=== PATIENT | male | born 1975 | race Caucasian/White ===

== ENCOUNTER 2017-07-26 22:12 | Emergency (ER) | payer MEDICARE ==
[~2017-07-26] VITALS: Ht 182.9 cm; Wt 127.0 kg
[~2017-07-26 22:12] MED LIST: ACE325 PO; ACET-2043 PO; ALLO-119 PO; AMLO-104 PO; AMLO-99 PO; AMOX-559 PO; AMOX1TAB3 PO; AUG875 PO; BP MED; BUPR-472 PO; CALC-661 PO; CAR6.25; CLI150 PO; CLON-329 PO; COLC0.6T42 PO; CYAN1TAB44 PO; CYAN500T49 PO; DIGO250T6 PO; DULO30CA35 PO; DULO60CA56 PO; FEBU40TA2 PO; FEBU80TA3 PO; FERR-53 PO; FOL1 PO; FOLI0.4T56 PO; FUR40 PO; FURO-43 PO; GABA-503 PO; GABA-549 PO; GLIP-152 PO; HYDR-2975 PO; HYDR100T5 PO; HYDR1TAB PO; HYDR2TAB74 PO; HYDR50TA35 PO; INDO25OR3 PO; INDO50CA92 PO; ISOS60TA42 PO; LOR1 PO; METF-410 PO; METH4TAB57 PO; METO-231 PO; METO200T33 PO; METO5TAB79 PO; OXYC-865 PO; OXYC-870 PO; OXYC1TAB54 PO; PER PO; POTA20PA10 PO; POTA99TA10 PO; PRE1 PO; PRE10; PRE10 PO; PRE5 PO; PRED-1 PO; PRED-314 PO; PRED20TA6 PO; PROM-110 PO; SODI650T7 PO; SPIR25TA78 PO; TRA50 PO; TRAM-420 PO; VITA-175 PO; VITA1CAP50 PO; WAR25 PO; WARF2TAB81 PO; WARFARIN 2.5 MG; [UNRECOGNIZED DRUG - CODE]; [UNRECOGNIZED DRUG - OTHER]
--- NOTE | 2017-07-26 22:16 | ER Report ---
History and Physical Time Seen By MD: 22:16 HPI/ROS CHIEF COMPLAINT: Altered mental status HISTORY OF PRESENT ILLNESS: 41-year-old male brought in by his family with concerns about him sleeping for the last 2-3 days. He's only been awake for meals. He's been having some unsteady gait. He's been having some falling issues. Apparently fell just before they brought him in, which was a concern. Patient on arrival is alert and oriented 3. He is mentating well. He voices no complaints. Patient denies headache, visual changes, any numbness, tingling or weakness in any of his extremities. Patient denies new medications except for U [place], which was started 6-8 weeks ago. Patient's been unable to take his medications today because he been sleeping. His blood pressures elevated on arrival. He is on multiple medications for blood pressure management. REVIEW OF SYSTEMS: Respiratory: No cough, no dyspnea. Cardiovascular: No chest pain, no palpitations. Gastrointestinal: No vomiting, no abdominal pain. Musculoskeletal: No back pain. Allergies: Coded Allergies: No Known Drug Allergies (Verified , 07/26/17) Home Meds Active Scripts Glipizide (GLIPIZIDE) 5 Mg Tablet, 1 TAB PO BID, #60 TAB 4 Refills Prov:BRADLEY LYLES MD 06/09/17 Prednisone 5 Mg Tab (PREDNISONE 5 MG TAB) 5 Mg Tablet, 1 TAB PO QDAY, #30 TAB Prov:BRADLEY LYLES MD 04/30/17 Isosorbide Mononitrate (ISOSORBIDE MONONITRATE ER) 60 Mg Tab.er.24h, 60 MG PO QDAY, #30 TAB 3 Refills Prov:BRADLEY LYLES MD 04/30/17 Duloxetine Hcl (CYMBALTA) 60 Mg Capsule.dr, 60 MG PO QDAY, #30 CAP 3 Refills Prov:BRADLEY LYLES MD 04/21/17 Oxycodone Hcl/Acetaminophen (PERCOCET 5-325 MG TABLET) 1 Each Tablet, 1 EACH PO BID Y for PAIN, #60 TAB Prov:BRADLEY LYLES MD 04/21/17 Hydralazine Hcl (HYDRALAZINE HCL) 100 Mg Tablet, 100 MG PO TID, #90 TAB 3 Refills Prov:BRADLEY LYLES MD 03/22/17 Warfarin Sodium (WARFARIN SODIUM) 2 Mg Tablet, 1-2 TAB PO DIRECTED, #60 TAB 6 Refills Take 2 tabs on Mon, Wed, Fri, Sat Take 1 tab on Tu, Th, and Sun Prov:BRADLEY LYLES MD 03/22/17 Amlodipine Besylate (AMLODIPINE BESYLATE) 10 Mg Tablet, 1 TAB PO QDAY, #30 TAB 6 Refills Prov:BRADLEY LYLES MD 03/10/17 Reported Medications Febuxostat (ULORIC) 40 Mg Tablet, 40 MG PO QDAY 07/27/17 Febuxostat (ULORIC) 40 Mg Tablet, 40 MG PO QDAY 06/09/17 Vitamin B Complex (B COMPLEX) 1 Each Tablet, 1 EACH PO QDAY 03/01/17 Acetaminophen (ACETAMINOPHEN) 500 Mg Tablet, 2 TAB PO Q4-6H Y for PAIN, TAB 03/01/17 Ferrous Sulfate (FERROUS SULFATE) 325 Mg Tablet, 1 TAB PO BID 03/01/17 Calcium Carbonate (CALCIUM CARBONATE) 200 Mg Tab.chew, 1 TAB PO TID, TAB.CHEW 03/01/17 Allopurinol (ZYLOPRIM) 300 Mg Tablet, 1 TAB PO BID, TAB 01/26/17 Metoprolol Succinate (TOPROL XL) 200 Mg Tab.er.24h, 1 TAB PO BID 01/11/14 Folic Acid (FOLIC ACID) 0.4 Mg Tablet, 1 TAB PO DAILY 01/11/14 Past Medical/Surgical History Past Medical History Cardiovascular: Reports hx of: CHF hypertension Respiratory: Reports hx of: sleep apnea (Cpap) Musculoskeletal: Reports hx of: gout Endocrine: Reports hx of: diabetes type 2 Past Surgical History Gastrointestinal: Reports hx of: other GI surgery (Tumor removed from colon) Genitourinary - Male: Reports hx of: other surgery (Testical Removed) Information copy from Dr. Lyles's note dated 06/09/17 This patient is a pleasant 41-year-old male who came in today to see me for the f/u. patient had a complicated medical history he was recently hospitalized at [facility] on 02/17/17 and was discharged on 02/22/17. Patient was admitted because of the suspicion for sepsis he has moved here from [place] not too long ago patient has had tachycardia and leukocytosis along with elevated lactate at admission he was treated with IV fluids and IV antibiotics of infection was identified and antibiotics were stopped after 5 days for infection was found Past medical history significant for stage IIIB chronic kidney disease he did have acute kidney injury during his stay in the hospital in February/2017 with rise in the creatinine to about 2.3 patient was also seen by pie filling mixer during his stay in the hospital his creatinine has improved since then and most recent labs have shown creatinine of 1.60 which appeared to have worsened from the previous creatinine patient is not on any diuretics at this time Patient also has history of chronic gout he is currently on allopurinol 300 mg twice a day and has recently been started on ULoric 40 mg daily. His last uric acid level was 6.1 and appears to have improved Patient also has history of chronic systolic heart failure his ejection fraction was only 20% in 2012 and has had ICD placed at that time recently in the hospital on 02/19/17 echocardiogram showed LVEF of 40-50% with normal diastolic function he is currently following up with the environmental projects advisor from [place] for furosemide and spironolactone have been discontinued recently he has another echocardiogram on 03/31/17 which has shown mildly decreased left ventricular ejection fraction of 45% with 2 x 4 diastolic dysfunction Patient was also found to have hypernatremia and most recent labs have shown sodium of 149 he has been following up with pie filling mixer in [place] but the records are not available Past medical history significant for diabetes mellitus patient was on metformin until recently and was discontinued because of the kidney disease he is also on chronic prednisone therapy likely responsible for diabetes mellitus he is currently on glipizide 5 mg every day most recent labs have shown a hemoglobin A1c of 5.7 according to patient his blood sugars have started to go up again Patient also had intermittent hematuria and is going to follow up with urologist Patient has history of hypertension which is difficult to control blood pressure is still elevated he is currently on amlodipine 10 mg daily along with hydralazine 100 mg daily and also on metoprolol 200 mg twice a day. Blood pressure is still elevated patient is not sure if he is taking hydralazine or not patient has been referred to environmental projects advisor but was unable to come in for his appointment and will try to reschedule Patient also has history of depression and anxiety he was on Wellbutrin and has been switched to Cymbalta to help with his pain Reviewed Nurses Notes: Yes Old Medical Records Reviewed: Yes Hx Smoking: Yes Smoking Status: Former Smoker Exposure to Second Hand Smoke?: No Hx Substance Use Disorder: No Hx Alcohol Use: No Constitutional Vital Sign - Last 24 Hours 07/26/17 07/26/17 07/26/17 07/26/17 22:16 22:17 22:20 22:23 Temp 97.9 Pulse 128 Resp 24 B/P (MAP) 175/132 (146) 165/123 186/131 (149) 165/123 (137) Pulse Ox 94 O2 Delivery Room Air 07/26/17 07/26/17 07/26/17 07/26/17 22:27 22:30 22:42 22:57 Pulse 119 56 55 Resp 29 22 12 B/P (MAP) 182/114 (136) Pulse Ox 96 93 93 07/26/17 07/26/17 07/26/17 07/26/17 23:02 23:17 23:30 23:32 Pulse ??? 54 52 Resp 80 17 B/P (MAP) 183/106 (131) Pulse Ox 94 91 07/26/17 07/27/17 07/27/17 07/27/17 23:47 00:00 00:02 00:07 Pulse 49 50 53 Resp 22 24 20 B/P (MAP) 185/117 (139) Pulse Ox 94 91 91 Physical Exam General Appearance: The patient is alert, has no immediate need for airway protection and no current signs of toxicity. Alert and oriented 3, vital signs stable, afebrile, blood pressure elevated HEENT: Pupils equal and round no injection. TMs normal, oropharynx without redness or exudate, mucous. Membranes are moist Respiratory: Chest is non tender, lungs are clear to auscultation. No wheezing or rails Cardiac: regular rate and rhythm Gastrointestinal: Abdomen is soft and non tender, no masses, bowel sounds normal. Musculoskeletal: Neck: Neck is supple and non tender. No lymphadenopathy, no meningismus Extremities have full range of motion and are non tender. Skin: No rashes or lesions. DIFFERENTIAL DIAGNOSIS: After history and physical exam differential diagnosis was considered for altered mental status including but not limited to hypoglycemia, infectious process, electrolyte abnormality, head injury and intoxicants. Medical Decision Making Data Points Result Diagram: 1/22/18 2245 1/22/18 2245 Laboratory Hematology Test 07/26/17:21 07/26/17 22:23 07/26/17 22:45 07/26/17 23:42 Influenza Virus Type A (PCR) Negative (NEGATIVE) Influenza Virus Type B (PCR) Negative (NEGATIVE) Whole Blood Glucose 129 mg/DL (75-110) Red Blood Count 5.82 M/uL (4.00-5.60) Mean Corpuscular Volume 80.1 fL (80.0-96.0) Mean Corpuscular Hemoglobin 25.9 pg (26.0-33.0) Mean Corpuscular Hemoglobin Concent 32.3 g/dL (32.0-36.0) Red Cell Distribution Width 17.8 % (11.5-14.5) Mean Platelet Volume 8.8 fL (7.2-11.1) Neutrophils (%) (Auto) 68.4 % (39.4-72.5) Lymphocytes (%) (Auto) 23.1 % (17.6-49.6) Monocytes (%) (Auto) 6.9 % (4.1-12.4) Eosinophils (%) (Auto) 0.5 % (0.4-6.7) Basophils (%) (Auto) 1.1 % (0.3-1.4) Nucleated RBC Relative Count (auto) 0.0 /100WBC Neutrophils # (Auto) 6.9 K/uL (2.0-7.4) Lymphocytes # (Auto) 2.3 K/uL (1.3-3.6) Monocytes # (Auto) 0.7 K/uL (0.3-1.0) Eosinophils # (Auto) 0.1 K/uL (0.0-0.5) Basophils # (Auto) 0.1 K/uL (0.0-0.1) Nucleated RBC Absolute Count (auto) 0.01 K/uL Peripheral Blood Smear No Y/N Prothrombin Time 13.1 seconds (12.0-14.4) Prothromb Time International Ratio 0.99 Activated Partial Thromboplast Time 28 seconds (23-35) Sodium Level 146 mmol/L (137-145) Potassium Level 4.0 mmol/L (3.5-5.0) Chloride Level 112 mmol/L (98-107) Carbon Dioxide Level 22 mmol/L (22-30) Blood Urea Nitrogen 22 mg/dl (9-21) Creatinine 2.00 mg/dl (0.66-1.25) Glomerular Filtration Rate Calc 37.0 Random Glucose 129 mg/dl (75-110) Lactate 1.6 mmol/L (0.7-2.1) Calcium Level 9.7 mg/dl (8.4-10.2) Total Bilirubin 1.1 mg/dl (0.2-1.3) Aspartate Amino Transf (AST/SGOT) 21 U/L (0-35) Alanine Aminotransferase (ALT/SGPT) 40 U/L (0-56) Alkaline Phosphatase 100 U/L (0-126) Troponin I 0.075 ng/ml B-Type Natriuretic Peptide 1080 pg/ml (0-100) Total Protein 7.1 gm/dl (6.3-8.2) Albumin 4.0 g/dl (3.5-5.0) Serum Alcohol < 10 mg/dl Urine Color Yellow Urine Clarity Clear Urine pH 5.0 pH (4.8-9.5) Urine Specific [place] 1.013 Urine Protein 100 mg/dL (NEGATIVE) Urine Glucose (UA) Negative mg/dL (NEGATIVE) Urine Ketones Negative mg/dL (NEGATIVE) Urine Blood Small (NEGATIVE) Urine Nitrite Negative (NEGATIVE) Urine Bilirubin Negative (NEGATIVE) Urine Urobilinogen Negative mg/dL (0.2-1.9) Urine Leukocyte Esterase Negative (NEGATIVE) Urine RBC 1 /HPF (0-2/HPF) Urine WBC <1 /HPF (0-5/HPF) Urine Squamous Epithelial Cells None /LPF (</=FEW) Urine Bacteria Negative /HPF (NONE-FEW) Urine Hyaline Casts Few /LPF (NONE-FEW) Urine Mucus None /HPF (NONE-FEW) Urine Opiates Screen Negative Urine Barbiturates Screen Negative Ur Tricyclic Antidepressants Screen Negative Urine Phencyclidine Screen Negative Urine Amphetamines Screen Negative Urine Benzodiazepines Screen Negative Urine Cocaine Screen Negative Urine Cannabinoids Screen Negative Chemistry Test 07/26/17 22:21 07/26/17 22:23 07/26/17 22:45 07/26/17 23:42 Influenza Virus Type A (PCR) Negative (NEGATIVE) Influenza Virus Type B (PCR) Negative (NEGATIVE) Whole Blood Glucose 129 mg/DL (75-110) White Blood Count 10.1 k/uL (4.5-11.0) Red Blood Count 5.82 M/uL (4.00-5.60) Hemoglobin 15.1 g/dL (14.0-18.0) Hematocrit 46.7 % (42.0-52.0) Mean Corpuscular Volume 80.1 fL (80.0-96.0) Mean Corpuscular Hemoglobin 25.9 pg (26.0-33.0) Mean Corpuscular Hemoglobin Concent 32.3 g/dL (32.0-36.0) Red Cell Distribution Width 17.8 % (11.5-14.5) Platelet Count 226 K/uL (150-450) Mean Platelet Volume 8.8 fL (7.2-11.1) Neutrophils (%) (Auto) 68.4 % (39.4-72.5) Lymphocytes (%) (Auto) 23.1 % (17.6-49.6) Monocytes (%) (Auto) 6.9 % (4.1-12.4) Eosinophils (%) (Auto) 0.5 % (0.4-6.7) Basophils (%) (Auto) 1.1 % (0.3-1.4) Nucleated RBC Relative Count (auto) 0.0 /100WBC Neutrophils # (Auto) 6.9 K/uL (2.0-7.4) Lymphocytes # (Auto) 2.3 K/uL (1.3-3.6) Monocytes # (Auto) 0.7 K/uL (0.3-1.0) Eosinophils # (Auto) 0.1 K/uL (0.0-0.5) Basophils # (Auto) 0.1 K/uL (0.0-0.1) Nucleated RBC Absolute Count (auto) 0.01 K/uL Peripheral Blood Smear No Y/N Prothrombin Time 13.1 seconds (12.0-14.4) Prothromb Time International Ratio 0.99 Activated Partial Thromboplast Time 28 seconds (23-35) Glomerular Filtration Rate Calc 37.0 Lactate 1.6 mmol/L (0.7-2.1) Calcium Level 9.7 mg/dl (8.4-10.2) Total Bilirubin 1.1 mg/dl (0.2-1.3) Aspartate Amino Transf (AST/SGOT) 21 U/L (0-35) Alanine Aminotransferase (ALT/SGPT) 40 U/L (0-56) Alkaline Phosphatase 100 U/L (0-126) Troponin I 0.075 ng/ml B-Type Natriuretic Peptide 1080 pg/ml (0-100) Total Protein 7.1 gm/dl (6.3-8.2) Albumin 4.0 g/dl (3.5-5.0) Serum Alcohol < 10 mg/dl Urine Color Yellow Urine Clarity Clear Urine pH 5.0 pH (4.8-9.5) Urine Specific [place] 1.013 Urine Protein 100 mg/dL (NEGATIVE) Urine Glucose (UA) Negative mg/dL (NEGATIVE) Urine Ketones Negative mg/dL (NEGATIVE) Urine Blood Small (NEGATIVE) Urine Nitrite Negative (NEGATIVE) Urine Bilirubin Negative (NEGATIVE) Urine Urobilinogen Negative mg/dL (0.2-1.9) Urine Leukocyte Esterase Negative (NEGATIVE) Urine RBC 1 /HPF (0-2/HPF) Urine WBC <1 /HPF (0-5/HPF) Urine Squamous Epithelial Cells None /LPF (</=FEW) Urine Bacteria Negative /HPF (NONE-FEW) Urine Hyaline Casts Few /LPF (NONE-FEW) Urine Mucus None /HPF (NONE-FEW) Urine Opiates Screen Negative Urine Barbiturates Screen Negative Ur Tricyclic Antidepressants Screen Negative Urine Phencyclidine Screen Negative Urine Amphetamines Screen Negative Urine Benzodiazepines Screen Negative Urine Cocaine Screen Negative Urine Cannabinoids Screen Negative Coagulation Test 07/26/17 22:45 Prothrombin Time 13.1 seconds Prothromb Time International Ratio 0.99 Activated Partial Thromboplast Time 28 seconds Toxicology Test 07/26/17 22:45 07/26/17 23:42 Serum Alcohol < 10 mg/dl Urine Opiates Screen Negative Urine Barbiturates Screen Negative Ur Tricyclic Antidepressants Screen Negative Urine Phencyclidine Screen Negative Urine Amphetamines Screen Negative Urine Benzodiazepines Screen Negative Urine Cocaine Screen Negative Urine Cannabinoids Screen Negative Urinalysis Test 07/26/17 23:42 Urine Color Yellow Urine Clarity Clear Urine pH 5.0 pH (4.8-9.5) Urine Specific [place] 1.013 Urine Protein 100 mg/dL (NEGATIVE) Urine Glucose (UA) Negative mg/dL (NEGATIVE) Urine Ketones Negative mg/dL (NEGATIVE) Urine Blood Small (NEGATIVE) Urine Nitrite Negative (NEGATIVE) Urine Bilirubin Negative (NEGATIVE) Urine Urobilinogen Negative mg/dL (0.2-1.9) Urine Leukocyte Esterase Negative (NEGATIVE) Urine RBC 1 /HPF (0-2/HPF) Urine WBC <1 /HPF (0-5/HPF) Urine Squamous Epithelial Cells None /LPF (</=FEW) Urine Bacteria Negative /HPF (NONE-FEW) Urine Hyaline Casts Few /LPF (NONE-FEW) Urine Mucus None /HPF (NONE-FEW) EKG/Imaging EKG Interpretation 12 lead EK Rhythm: Ventricular pacemaker rhythm at 114 bpm Winnie: normal QRS: normal ST segments: normal, comparison to previous EKG dated 09/02/49, no significant overall morphologic change, there is an increased rate Imaging X-ray: Single view chest x-ray was obtained. I viewed the images myself on the PACS system. My interpretation of the images is: No infiltrate, no effusion, intact pacemaker,. The radiologist interpretation had no clinically significant variation from this interpretation. Results: CT scan of the head was obtained. The results of the study are CT Head without contrast Indication: Altered mental status, falling. Comparison: None available. Technique: Axial CT images were obtained through the brain from the skull base to the vertex without administration of IV contrast. One of the following dose optimization techniques was utilized in the performance of this exam: Automated exposure control; adjustment of the mA and/or kV according to the patient's size ; or use of an iterative reconstruction technique. Specific details can be referenced in the facility's radiology CT exam operational policy. Findings: No evidence of mass, mass effect, or midline shift. No acute intracranial hemorrhage or acute territorial infarction. There is a small amount of bilateral patchy White matter hypoattenuation. Skull is nonacute. Globes and orbits are normal. Small retention cysts in the right maxillary sinus. The visualized paranasal sinuses and mastoid air spaces are otherwise clear. IMPRESSION: 1. No definite acute intracranial abnormality. 2. Small amount of nonspecific white matter disease, possibly related to chronic small vessel ischemic changes. The study was read by the radiologist. I viewed the images myself on the PACS system. ED Course/Re-evaluation Clinical Indication for ER IV: IV Access ED Course Patient was admitted to an examination room. H&P was done. The differential diagnoses was considered. On clinical examination, patient is a nonfocal neurologic examination is appropriate and responding. Extensive diagnostic evaluation is undertaken. He has some chronic medical problems, which are noted on the laboratory studies. Head CT is unremarkable. See no indication for admission at this time. I reviewed his medications. DC Uloric, which was recently started 6 or 8 weeks ago can cause mental status changes. I advised him to discontinue it. Patient has a follow-up appointment with his primary care tomorrow. Decision to Disposition Date: Jul 27, 2017 Decision to Disposition Time: 00:14 Depart Departure Latest Vital Signs Vital Signs Date Time Temp Pulse Resp B/P (MAP) Pulse Ox O2 Delivery O2 Flow Rate FiO2 07/27/17 00:07 53 20 91 07/27/17 00:00 185/117 (139) 07/26/17 22:17 97.9 Room Air Impression: Primary Impression: Altered mental status, unspecified Additional Impressions: Adverse drug reaction Gout Cardiomyopathy Pacemaker Hypertension Condition: Improved Disposition: HOME OR SELF-CARE Referrals: BRADLEY LYLES MD (PCP) Patient Instructions: Adverse Drug Reaction (ED), Fatigue (ED) Additional Instructions: Follow-up with your primary care doctor as planned in the next few days Problem Qualifiers Primary Impression: Altered mental status, unspecified Altered mental status type: somnolence Qualified Codes: R40.0 - Somnolence Additional Impressions: Adverse drug reaction Encounter type: initial encounter Qualified Codes: T88.7XXA - Unspecified adverse effect of drug or medicament, initial encounter Gout Gout site: unspecified site Gout etiology: unspecified cause Chronicity: chronic Presence of tophus: without tophus Qualified Codes: M1A.9XX0 - Chronic gout, unspecified, without tophus (tophi) Cardiomyopathy Cardiomyopathy type: unspecified Qualified Codes: I42.9 - Cardiomyopathy, unspecified Hypertension Hypertension type: essential hypertension Qualified Codes: I10 - Essential ( primary) hypertension CARRIE GRIFFIN DO Jul 26, 2017 22:16
--- NOTE | 2017-07-26 22:39 | EKG ---
[place] [facility] [place] VIKTORIA BUSBY : [id number] MR: [id number] V: [id number] EXAM DATE: ORDERING PHYSICIAN: CARRIE GRIFFIN TECHNOLOGIST: SERJIO Licea Reason : NEURO Blood Pressure : / mmHG Vent. Rate : 114 BPM Atrial Rate : 114 BPM P-R Int : 136 ms QRS Dur : 126 ms QT Int : 376 ms P-R-T Axes : 052 -78 080 degrees QTc Int : 518 ms Electronic ventricular pacemaker with elevated rate approxiamtely 115. Confirmed by CAROL GREEN ([id number]) on 07/27/2017 5:44:24 AM Referred By: Confirmed By:CAROL GREEN
[2017-07-26 22:57] LABS: PLATELET COUNT, AUTOMATED 226 K/uL (150-450)
[2017-07-26 23:06] LABS: INR 0.99
--- NOTE | 2017-07-26 23:36 | RADIOLOGY IMAGING REPORT ---
FACILITY: [facility] PATIENT NAME: Roland Daugherty : 1975 MR: [id number] V: [id number] EXAM DATE: ORDERING PHYSICIAN: CARRIE GRIFFIN TECHNOLOGIST: Location: [facility] [place] Patient: Roland Daugherty : 1975 Visit/Account:[id number] Date of Sevice: 07/26/2017 CT Head without contrast Indication: Altered mental status, falling. Comparison: None available. Technique: Axial CT images were obtained through the brain from the skull base to the vertex without administration of IV contrast. One of the following dose optimization techniques was utilized in th e performance of this exam: Automated exposure control; adjustment of the mA and/or kV according to t he patient's size; or use of an iterative reconstruction technique. Specific details can be referen starr in the facility's radiology CT exam operational policy. Findings: No evidence of mass, mass effect, or midline shift. No acute intracranial hemorrhage or acute territorial infarction. There is a small amount of bilateral patchy White matter hypoattenuation. Skull is nonacute. Globes and orbits are normal. Small retention cysts in the right maxillary sinus. The visualized paranasal sinuses and mastoid air spaces are otherwise clear. IMPRESSION: 1. No definite acute intracranial abnormality. 2. Small amount of nonspecific white matter disease, possibly related to chronic small vessel ischem ic changes. Report Dictated By: Robin Flood MD at 07/26/2017 11:27 PM Report E-Signed By: Robin Flood MD at 07/26/2017 11:31 PM WSN:[id number]
--- NOTE | 2017-07-26 23:37 | RADIOLOGY IMAGING REPORT ---
[place] [facility] [place] Roland Daugherty : 1975 MR: [id number] V: [id number] EXAM DATE: ORDERING PHYSICIAN: CARRIE GRIFFIN [place]CHNOLOG[place] [facility] [place] : 1975 Visit/Account:[id number] Date of Sevice: 07/26/2017 SINGLE AP RADIOGRAPH OF THE CHEST 07/26/2017 10:32 PM. INDICATION: Altered mental status. COMPARISON: 01/21/2017. FINDINGS: Unchanged implanted pacer/defibrillator. Lungs are well-expanded. There is no consolidation. No pleural effusion or pneumothorax. Unchanged e nlargement of the cardiac silhouette. IMPRESSION: Unchanged enlargement of the cardiac silhouette, no acute abnormality. Report Dictated By: Robin Flood MD at 07/26/2017 11:31 PM Report E-Signed By: Robin Flood MD at 07/26/2017 11:33 PM WSN:[id number]
[2017-07-27] VITALS: BP 185/117
[2017-07-27] MEDS ORDERED: FEBU40TA2 PO
[2017-07-27] MEDS ORDERED: HYDR100T5 PO (13:18)
[2017-07-27] MEDS ORDERED: GLIP-152 PO (13:18)
[2017-07-27] MEDS ORDERED: DULO60CA56 PO (13:18)
[2017-07-27] MEDS ORDERED: WARF2TAB81 PO (13:18)
[2017-07-27] MEDS ORDERED: ISOS60TA42 PO (13:18)
[2017-07-27] MEDS ORDERED: AMLO-99 PO (13:18)
[2017-07-27] MEDS ORDERED: METO200T33 PO (13:18)
[2017-07-27] MEDS ORDERED: ALLO-119 PO (13:18)
== END 2017-07-27 00:20 | disposition home or self-care (01) ==
LOC: ER 22:15
DX: R40.0 Somnolence (principal); T88.7XXA Unspecified adverse effect of drug or medicament, initial encounter; M1A.9XX0 Chronic gout, unspecified, without tophus (tophi); I42.9 Cardiomyopathy, unspecified; I10 Essential (primary) hypertension; Z95.0 Presence of cardiac pacemaker; Z91.81 History of falling; E11.9 Type 2 diabetes mellitus without complications; G47.30 Sleep apnea, unspecified
CPT/HCPCS: 36415; 36416; 70450; 71045; 80305; 81001; 82948; 83605; 83880; 84443; 84484; 85025; 85610; 85730; 87040; 87502; 93005; 99284; G0480; 80320; 82040; 82247; 82310; 82374; 82435; 82565; 82947; 84075; 84132; 84155; 84295; 84450; 84460; 84520

== ENCOUNTER → 2017-08-12 | Outpatient (CLI) | payer MEDICARE | LOC: SPU 14:32 | DX: M10.9 Gout, unspecified (principal); Z79.899 Other long term (current) drug therapy | CPT/HCPCS: 82565; 84450; 84550 ==

== ENCOUNTER 2017-08-27 09:56 | Outpatient (RCR) | payer MEDICARE ==
[2017-08-12 14:38] VITALS: BP 138/93
[2017-08-12 15:15] LABS: PLATELET COUNT, AUTOMATED 210 K/uL (150-450)
[2017-08-27 10:03] VITALS: BP 158/99
--- NOTE | 2017-08-27 17:24 | ONCOLOGY FOLLOW UP NOTE ---
EVENT DATE: August 27, 2017 DIAGNOSES 1. Bone lesions. 2. History of histocytosis as an , status post radiation and chemotherapy. 3. Congestive heart failure. 4. Chronic kidney disease. 5. Hypertension. 6. Diabetes mellitus. 7. Gout. CHIEF COMPLAINT The patient is here today for followup of his bone lesions. HEMATOLOGY/ONCOLOGY HISTORY The patient is a 41-year-old male who presented to the emergency room lately with abdominal pain and hematuria. He had a CT of the abdomen and pelvis done on January 26, 2017, which showed a chronically right atrophic kidney with numerous complex renal lesions which could represent complex cysts. There were also 2 stable small mesenteric masses unchanged from his previous scan in 2013. There were numerous sclerotic bone lesions which had progressed from 2013 and concerning for possible progressive osseus metastatic disease. The patient presented with bone lesions in 2012, and he had a right ischial bone biopsy done on November 25, 2014, which showed bone was associated with both skeletal and muscle tissue. HISTORY OF PRESENT ILLNESS Patient is here today for followup of his enlarging bone lesions which proved to be benign. He is complaining of nasal discharge with cough and expectoration and intermittent diarrhea. He has generalized pain from his gout , but generally speaking his pain is much better controlled currently, and the patient is followed by a quality assurance supervisor. PAST MEDICAL HISTORY 1. Bone lesions. 2. Histocytosis as an infant, status post chemoradiation. 3. Congestive heart failure. 4. Chronic kidney disease. 5. Hypertension. 6. Diabetes mellitus. 7. Gout. PAST SURGICAL HISTORY 1. Orchiectomy in 1997. 2. 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 3. Placement of a defibrillator. FAMILY HISTORY Mother with pancreatic cancer. Maternal grandmother had colon cancer. SOCIAL HISTORY The patient is with no children. He is on disability. He quit smoking in 2009 after 1-1/2 packs per day for 16 years. He denies any abuse of alcohol or illicit drugs. CURRENT MEDICATIONS 1. Percocet 5/325 mg 1 tablet q.4 hours p.r.n. pain. 2. Allopurinol 300 mg twice daily. 3. Tramadol 50 mg q.4-6 hours p.r.n. 4. Metformin 500 mg b.i.d. 5. Potassium 99 mg b.i.d. 6. Metoprolol 200 mg q.24 hours. 7. Folic acid 400 mcg daily. 8. Gabapentin 600 mg 3 times daily. 9. Wellbutrin XL 150 mg once daily. 10. Amlodipine 10 mg daily. 11. Hydralazine 50 mg 3 times daily. 12. Vitamin B12 500 mcg daily. 13. Warfarin 2.5 mg daily on Wednesday, Wednesday, and Wednesday; 5 mg on Wednesday, Wednesday, , and Wednesday. 14. Lasix 40 mg daily. 15. Spironolactone 25 mg tablets 1/2 tablet daily. ALLERGIES No known drug allergies. REVIEW OF SYSTEMS CONSTITUTIONAL: No appetite or weight change. No fever, chills or sweating. No recent infection. HEENT: Ears: No tinnitus or hearing problem. Nose: He has nasal discharge. Throat: No sore throat or mouth ulcers. Eyes: No diplopia or visual changes. RESPIRATORY: He has cough with expectoration. CARDIOVASCULAR: No chest pain, orthopnea, or paroxysmal nocturnal dyspnea (PND) . No edema. No palpitations. GASTROINTESTINAL: No nausea or vomiting. He has intermittent diarrhea. No change in bowel movements. No heartburn or swallowing difficulties. No abdominal pain. No jaundice. No hematemesis, melena or rectal bleeding. GENITOURINARY: He has generalized joint pains from gout. No hematuria or dysuria. MUSCULOSKELETAL: He has generalized joint pains from gout. NEUROLOGICAL: No tingling or numbness in the hands or feet. No headaches or convulsions. HEMATOLOGIC/LYMPHATIC: No bleeding or easy bruising. No weakness or fatigue. No enlarged lymph nodes. SKIN: No skin rash or lumps. PSYCHIATRIC: No anxiety or depression. PHYSICAL EXAMINATION GENERAL: Looks stable. Well-developed, well-nourished, and in no acute distress. VITAL SIGNS: Blood pressure 158/99, pulse 89 per minute, respirations 16 per minute, temperature 98.9, pulse ox 98% on room air. HEENT: Head: Atraumatic. No sinus tenderness to palpation. Eyes: No icterus or conjunctivitis. Mouth and throat: No oral thrush or mucositis. NECK: Supple. No cervical or supraclavicular lymphadenopathy. LUNGS: Clear to auscultation and percussion bilaterally. HEART: Regular rate and rhythm. No gallops, murmurs, clicks or rubs. ABDOMEN: Soft and lax. No tenderness. No hepatosplenomegaly. No masses. EXTREMITIES: No cyanosis, clubbing or edema. LYMPHATICS: No peripheral lymphadenopathy. NEUROLOGICAL: Conscious, alert and oriented times three. No focal motor or sensory deficits. PSYCHIATRIC: Mood and affect appear normal. SKIN: No skin rash, bruise or purpuric eruption. DIAGNOSTIC DATA CBC showed white count of 11.6, hemoglobin 13.5, hematocrit 42.2, platelets 210, 000. ASSESSMENT 1. Enlarging bone lesions, most probably benign in nature. Patient had a bone scan done on February 03, 2017 which did not show any bone metastasis. Those lesions seen by CT scan of the abdomen and pelvis most probably are due to benign lesions. PSA was normal at 0.41. The patient was assured about the benign nature of the bone lesions. He had a history of desmoid tumor of the colon, status post segmental colectomy a few years ago. He had also a history of histocytosis as an , status post chemoradiation, in remission currently. No further workup is required at the moment. 2. Leukocytosis with high ANC and high ALC. Flow cytometry was negative for monoclonality or lymphoproliferative disorder or leukemia. His LAP score is mildly elevated at 140, consistent with inflammatory condition. His current white count is nearly the same at 11.6, hemoglobin 13.5 and platelets normal at 210,000. I advised to check his count every six months, and I advised him to do that with Dr. Lyles, his primary care provider, and I will be more than happy to see him in the future if he has any abnormality in his blood count. 3. Chronic kidney disease. 4. History of congestive heart failure. 5. Diabetes mellitus type 2. 6. Gout on treatment. 7. History of hypertension. PLAN 1. Continue followup by Dr. Lyles. 2. Patient to return on a p.r.n. basis. 3. Patient is to contact us for any new concern or complaints. HERNANDO
== END 2017-09-29 14:22 | disposition home or self-care (01) ==
LOC: ONC 09:56
PROVIDERS: ATTEND Internal Medicine Hematology
DX: M89.9 Disorder of bone, unspecified (principal); D72.829 Elevated white blood cell count, unspecified; M10.9 Gout, unspecified; N18.9 Chronic kidney disease, unspecified; I50.9 Heart failure, unspecified; Z86.2 Personal history of diseases of the blood and blood-forming organs and certain disorders involving the immune mechanism; E11.9 Type 2 diabetes mellitus without complications; I10 Essential (primary) hypertension; R05 Cough; Z87.891 Personal history of nicotine dependence
CPT/HCPCS: 36415; 85025; G0463; 82565; 84450; 84550; 99212

== ENCOUNTER 2017-11-21 07:54 | Emergency (ER) | payer MEDICARE ==
[~2017-11-21 07:54] MED LIST changes: -METF-410 PO; +METF-411 PO; +WARF2TAB13 PO; -WARF2TAB81 PO
--- NOTE | 2017-11-21 08:24 | ER Report ---
History and Physical Time Seen By : 07:00 Hx. of Stated Complaint: pt reports he hit his R redman getting out of the tub ~15 mins ago, takes blood thinners HPI/ROS This is a 41-year-old male with multiple medical problems on Coumadin who presents to the ED with a hematoma to his right lower extremity after bumping it into the bathtub. There are no other injuries. He did not fall. It has been a few months since his INR was checked, and he was concerned that the hematoma would keep expanding. He is able to ambulate with minimal pain. Remainder of the 14 system rev: Yes Allergies: Coded Allergies: No Known Drug Allergies (Verified , 11/21/17) Home Meds Active Scripts Glipizide (GLIPIZIDE) 5 Mg Tablet, 1 TAB PO BID, #180 TAB 3 Refills Prov:BRADLEY SHARPE MD 07/27/17 Duloxetine Hcl (CYMBALTA) 60 Mg Capsule.dr, 60 MG PO QDAY, #90 CAP 3 Refills Prov:BRADLEY SHARPE MD 07/27/17 Hydralazine Hcl (HYDRALAZINE HCL) 100 Mg Tablet, 100 MG PO TID, #270 TAB 3 Refills Prov:BRADLEY SHARPE MD 07/27/17 Warfarin Sodium (WARFARIN SODIUM) 2 Mg Tablet, 1-2 TAB PO DIRECTED, #180 TAB 3 Refills Take 2 tabs on Mon, Wed, Fri, Sat Take 1 tab on Tu, Th, and Sun Prov:BRADLEY SHARPE MD 07/27/17 Amlodipine Besylate (AMLODIPINE BESYLATE) 10 Mg Tablet, 1 TAB PO QDAY, #90 TAB 3 Refills Prov:BRADLEY SHARPE MD 07/27/17 Allopurinol (ZYLOPRIM) 300 Mg Tablet, 1 TAB PO BID, #180 TAB 3 Refills Prov:BRADLEY SHARPE MD 07/27/17 Metoprolol Succinate (TOPROL XL) 200 Mg Tab.er.24h, 1 TAB PO BID, #180 TAB 3 Refills Prov:BRADLEY SHARPE MD 07/27/17 Prednisone 5 Mg Tab (PREDNISONE 5 MG TAB) 5 Mg Tablet, 1 TAB PO QDAY, #30 TAB Prov:BRADLEY SHARPE MD 04/30/17 Reported Medications Febuxostat (ULORIC) 40 Mg Tablet, 40 MG PO QDAY 06/09/17 Vitamin B Complex (B COMPLEX) 1 Each Tablet, 1 EACH PO QDAY 03/01/17 Calcium Carbonate (CALCIUM CARBONATE) 200 Mg Tab.chew, 1 TAB PO TID, TAB.CHEW 03/01/17 Folic Acid (FOLIC ACID) 0.4 Mg Tablet, 1 TAB PO DAILY 01/11/14 Reviewed Nurses Notes: Yes Old Medical Records Reviewed: Yes Hx Smoking: Yes Smoking Status: Former Smoker Exposure to Second Hand Smoke?: No Hx Substance Use Disorder: No Hx Alcohol Use: No Constitutional Vital Sign - Last 24 Hours 11/21/17 07:58 Temp 97.5 Pulse 80 Resp 16 B/P (MAP) 141/94 Pulse Ox 95 O2 Delivery Room Air Physical Exam General Appearance: The patient is alert, has no immediate need for airway protection and no current signs of toxicity. Respiratory: Chest is non tender, lungs are clear to auscultation. Cardiac: regular rate and rhythm Extremities have full range of motion. There is a [id number] hematoma to the medial region of the right tib/fib region. No bont TTP Skin: Hematoma to RLE DIFFERENTIAL DIAGNOSIS: After history and physical exam differential diagnosis was considered for expanding hematoma, fracture, other injuries Medical Decision Making Data Points Laboratory Hematology Test 11/21/17 08:43 Prothrombin Time 14.7 seconds (12.0-14.4) Prothromb Time International Ratio 1.14 Chemistry Test 11/21/17 08:43 Prothrombin Time 14.7 seconds (12.0-14.4) Prothromb Time International Ratio 1.14 Coagulation Test 11/21/17 08:43 Prothrombin Time 14.7 seconds Prothromb Time International Ratio 1.14 EKG/Imaging Imaging X-ray: tib/fib was obtained. I viewed the images myself on the PACS system. My interpretation of the images is: no fracture. The radiologist interpretation had no clinically significant variation from this interpretation. ED Course/Re-evaluation ED Course This is a 41-year-old male with multiple medical problems who is currently on warfarin. Developed right lower extremity hematoma after bumping his right lower extremity into the bathtub this morning. The hematoma is not rapidly expanding, and there is no fracture of the tib-fib area. His INR is 1.4. I will counselor supervisor him about his Coumadin dose and have him follow up to have a repeat INR sometime this week. Decision to Disposition Date: November 21, 2017 Decision to Disposition Time: 09:32 Depart Departure Latest Vital Signs Vital Signs Date Time Temp Pulse Resp B/P (MAP) Pulse Ox O2 Delivery O2 Flow Rate FiO2 11/21/17 07:58 97.5 80 16 141/94 95 Room Air Impression: Primary Impression: Hematoma Condition: Improved Disposition: HOME OR SELF-CARE Referrals: BRADLEY SHARPE MD (PCP) Patient Instructions: Hematoma (ED) Additional Instructions: TAKE 2 TABS OF WARFARIN EACH DAY. FOLLOW UP THIS WEEK WITH THE COUMADIN CLINIC GARTH MCCORMICK MD November 21, 2017 08:24
[2017-11-21 08:57] LABS: INR 1.14
--- NOTE | 2017-11-21 09:34 | RADIOLOGY IMAGING REPORT ---
FACILITY: PATIENT NAME: Roland Daugherty : 1975 MR: [id number] V: [id number] EXAM DATE: ORDERING PHYSICIAN: GARTH MCCORMICK TECHNOLOGIST: Location: [facility] [place] Patient: Roland Daugherty : 1975 Visit/Account:[id number] Date of Sevice: 11/21/2017 TIBIA FIBULA RIGHT Indication: Trauma. Blood thinners. Comparison: None available Findings: Frontal and lateral views of the right tibia-fibula are submitted on a total of 4 images. There is no acute fracture. 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 Best appreciated on the lateral views, there is edema anterior to the tibia. This is most pro nounced along the proximal shaft. Correlate with physical exam. This could be related to a small david ricco. Minimal changes of osteoarthritis are seen at the knee. There may be a small bone island within the calcaneus. IMPRESSION: 1. No acute fracture of the right tibia or fibula. 2. Nonspecific anterior soft tissue swelling most pronounced anterior to the proximal tibial shaft. Report Dictated By: Izaiah Mittal at 11/21/2017 9:27 AM Report E-Signed By: Izaiah Mittal at 11/21/2017 9:30 AM WSN:[id number]
[2017-11-21 09:39] VITALS: BP 138/82
== END 2017-11-21 09:40 | disposition home or self-care (01) ==
LOC: ER 08:07
DX: S80.11XA Contusion of right lower leg, initial encounter (principal); Z79.01 Long term (current) use of anticoagulants
CPT/HCPCS: 36415; 85610; 99283

== ENCOUNTER → 2017-12-07 | Outpatient (CLI) | payer MEDICARE ==
[~2017-12-07] MED LIST changes: +CEPH-13 PO; +HYDR-385 PO; +PRED-420 PO
[2017-12-07 09:57] LABS: PLATELET COUNT, AUTOMATED 200 K/uL (150-450)
[2017-12-07 10:19] LABS: INR 1.65
--- NOTE | 2017-12-07 10:48 | RADIOLOGY IMAGING REPORT ---
FACILITY: [facility] [place] PATIENT NAME: Roland Daugherty : 1975 MR: [id number] V: [id number] EXAM DATE: ORDERING PHYSICIAN: BRADLEY SHARPE TECHNOLOGIST: Location: [facility] Patient: Roland Daugherty : 1975 Visit/Account:[id number] Date of Sevice: 12/07/2017 Exam type: VENOUS DOPP LOW RIGHT EXTREMIT History: hematoma RLE, on blood thinners, hit chin in bathtub two weeks ago, hematoma Comparison: None. Findings: The right lower extremity veins were imaged including the right common femoral vein, superficial femo ral vein, profunda femoral vein, popliteal vein, posterior tibial vein and peroneal vein revealing no evidence of intraluminal thrombi. The veins were compressible and demonstrated augmentation. Along the anterior aspect of the right redman there is a subcutaneous soft tissue heterogeneous collect ion measuring approximately 4.5 x 2.3 x 4.5 cm consistent with the clinical history of a hematoma. N o active blood flow within the hematoma is demonstrated. IMPRESSION: 1. There is a 4.5 x 2.3 x 4.5 cm hematoma in the subcutaneous changes soft tissues anterior aspect o f the right redman. No evidence of DVT involving the right lower extremity veins Results were called to BRADLEY SHARPE at 12/07/2017 10:43 AM. Report Dictated By: Serena Naranjo MD at 12/07/2017 10:40 AM Report E-Signed By: Serena Naranjo MD at 12/07/2017 10:46 AM WSN:[email or web address]
== END ==
LOC: LAB 09:08
PROVIDERS: ATTEND Internal Medicine
DX: I50.9 Heart failure, unspecified (principal); Z86.2 Personal history of diseases of the blood and blood-forming organs and certain disorders involving the immune mechanism; Z79.01 Long term (current) use of anticoagulants; T14.8XXA Other injury of unspecified body region, initial encounter; I42.9 Cardiomyopathy, unspecified; Z95.810 Presence of automatic (implantable) cardiac defibrillator; E11.9 Type 2 diabetes mellitus without complications; N18.9 Chronic kidney disease, unspecified
CPT/HCPCS: 36415; 82040; 82247; 82310; 82374; 82435; 82465; 82565; 82947; 83036; 83718; 83880; 84075; 84132; 84155; 84295; 84443; 84450; 84460; 84478; 84520; 84550; 85025; 85610

== ENCOUNTER → 2017-12-15 | Outpatient (CLI) | payer MEDICARE | LOC: LAB 07:41 | PROVIDERS: ATTEND Internal Medicine | DX: N18.9 Chronic kidney disease, unspecified (principal) | CPT/HCPCS: 36415; 82040; 82247; 82310; 82374; 82435; 82565; 82947; 84075; 84132; 84155; 84295; 84450; 84460; 84520 ==

== ENCOUNTER → 2018-01-03 | Outpatient (CLI) | payer MEDICARE | LOC: LAB 11:13 | PROVIDERS: ATTEND Internal Medicine | DX: E87.2 Acidosis (principal); E11.9 Type 2 diabetes mellitus without complications; I42.9 Cardiomyopathy, unspecified | CPT/HCPCS: 36415; 82040; 82247; 82310; 82374; 82435; 82565; 82947; 83735; 83880; 84075; 84132; 84155; 84295; 84450; 84460; 84520 ==

== ENCOUNTER → 2018-01-14 | Outpatient (CLI) | payer MEDICARE | LOC: LAB 14:17 | PROVIDERS: ATTEND Internal Medicine Nephrology | DX: I12.9 Hypertensive chronic kidney disease with stage 1 through stage 4 chronic kidney disease, or unspecified chronic kidney disease (principal); N18.3 Chronic kidney disease, stage 3 (moderate); E87.0 Hyperosmolality and hypernatremia; M10.9 Gout, unspecified | CPT/HCPCS: 36415; 82040; 82306; 82310; 82374; 82435; 82565; 82570; 82947; 83540; 83550; 83970; 84100; 84132; 84156; 84295; 84520; 84550; 85018 ==

== ENCOUNTER → 2018-03-31 | Outpatient (CLI) | payer MEDICARE ==
[~2018-03-31] MED LIST changes: +AMLO-113 PO; -AMLO-99 PO; +ATOR20TA65 PO; +CALC-515 PO; +ERGO500037 PO; +LISI-362 PO; -METF-411 PO; +METF-450 PO; +TRAM-627 PO
[2018-03-31 13:28] LABS: PLATELET COUNT, AUTOMATED 240 K/uL (150-450)
--- NOTE | 2018-03-31 14:21 | RADIOLOGY IMAGING REPORT ---
FACILITY: [facility] [place] PATIENT NAME: Roland Daugherty : 1975 MR: [id number] V: [id number] EXAM DATE: ORDERING PHYSICIAN: BRADLEY SHARPE TECHNOLOGIST: Location: [facility] [place] Patient: Roland Daugherty : 1975 Visit/Account:[id number] Date of Sevice: 03/31/2018 Exam type: LUMBAR SPINE 2 OR 3 VIEW History: Chronic back pain, chronic kidney disease, acute gouty arthritis Comparison: December 01, 2012. Findings: There are five nonrib-bearing lumbar-type vertebral bodies present. There is no evidence of acute fr actures or subluxations. Disc spaces are well-maintained. Multiple sclerotic densities are again no jolanta in the pelvis some are to the prior study and apparently chronic IMPRESSION: 1. Multiple sclerotic densities again seen in the pelvis some are to the prior study and are apparen tly chronic No evidence of acute fractures or subluxations in the lumbar spine Report Dictated By: Serena Naranjo MD at 03/31/2018 2:13 PM Report E-Signed By: Serena Naranjo MD at 03/31/2018 2:17 PM WSN:[email or web address]
== END ==
LOC: LAB 13:03
PROVIDERS: ATTEND Internal Medicine
DX: M54.9 Dorsalgia, unspecified (principal); N18.9 Chronic kidney disease, unspecified; M10.9 Gout, unspecified; I42.9 Cardiomyopathy, unspecified; E11.9 Type 2 diabetes mellitus without complications; I10 Essential (primary) hypertension
CPT/HCPCS: 36415; 72100; 82040; 82247; 82310; 82374; 82435; 82565; 82947; 83036; 84075; 84132; 84155; 84295; 84450; 84460; 84520; 84550; 85025

== ENCOUNTER 2018-04-03 12:04 | Emergency (ER) | payer MEDICARE ==
[~2018-04-03 12:04] MED LIST changes: -TRAM-627 PO
[2018-04-03 12:08] VITALS: BP 151/109
--- NOTE | 2018-04-03 12:11 | ER Report ---
History and Physical Time Seen By MD: 12:11 HPI/ROS CHIEF COMPLAINT: Gout flare HISTORY OF PRESENT ILLNESS: 42-year-old male patient presents to emergency room with complaint of a gout flare. Patient has a flare up in his left fourth finger. It is right at the PIP joint. Patient states his been going on for last couple days. He states that the pain is gotten to the point was very significant. Patient has a history of taking prednisone 10 mg daily. Patient states she's been off that for a few months. He states that's good for him as historically has not been off for more than a few days. Patient states that when he does have this typically a prednisone taper works the best. Patient denies any fevers, chills, nausea, vomiting or diarrhea. Allergies: Coded Allergies: No Known Drug Allergies (Verified , 04/03/18) Home Meds Active Scripts Tramadol Hcl (ULTRAM) 50 Mg Tablet, 50 MG PO Q4-6H PRN for PAIN, #12 TAB Prov:JANE SONI 04/03/18 Prednisone (PREDNISONE) 20 Mg Tablet, 20 MG PO DAILY, #15 TAB Take 2 tabs daily x3 days. Then 1.5 tabs daily x3 days. Then 1 tab daily x3 days. Then 0.5 tabs daily x3 days. Prov:JANE SONI 04/03/18 Febuxostat (ULORIC) 40 Mg Tablet, 40 MG PO QDAY, #90 TAB 4 Refills Prov:BRADLEY SHARPE MD 03/11/18 Warfarin Sodium (WARFARIN SODIUM) 2 Mg Tablet, 1-2 TAB PO DIRECTED, #180 TAB 3 Refills Take 3 tabs on Mon, Wed, Fri Take 1 tab on , Th, Sat, and Sun Prov:BRADLEY SHARPE MD 12/07/17 Glipizide (GLIPIZIDE) 5 Mg Tablet, 1 TAB PO BID, #180 TAB 3 Refills Prov:BRADLEY SHARPE MD 07/27/17 Hydralazine Hcl (HYDRALAZINE HCL) 100 Mg Tablet, 100 MG PO TID, #270 TAB 3 Refills Prov:BRADLEY SHARPE MD 07/27/17 Amlodipine Besylate (AMLODIPINE BESYLATE) 10 Mg Tablet, 1 TAB PO QDAY, #90 TAB 3 Refills Prov:BRADLEY SHARPE MD 07/27/17 Allopurinol (ZYLOPRIM) 300 Mg Tablet, 1 TAB PO BID, #180 TAB 3 Refills Prov:BRADLEY SHARPE MD 07/27/17 Metoprolol Succinate (TOPROL XL) 200 Mg Tab.er.24h, 1 TAB PO BID, #180 TAB 3 Refills Prov:BRADLEY SHARPE MD 07/27/17 Reported Medications Ergocalciferol (Vitamin D2) (VITAMIN D2) 50,000 Unit Capsule, 32731 UNIT PO Q30D, CAPSULE 03/31/18 Atorvastatin Calcium (ATORVASTATIN CALCIUM) 20 Mg Tablet, 1 TAB PO QDAY, TAB 03/31/18 Lisinopril (LISINOPRIL) 10 Mg Tablet, 10 MG PO QDAY, TAB 03/31/18 Vitamin B Complex (B COMPLEX) 1 Each Tablet, 1 EACH PO QDAY 03/01/17 Folic Acid (FOLIC ACID) 0.4 Mg Tablet, 1 TAB PO DAILY 01/11/14 Discontinued Reported Medications Calcium Carbonate (TUMS) 200 Mg Tab.chew, 200 MG PO TID, TAB.CHEW 03/31/18 Prednisone 10 Mg Tab (PREDNISONE 10 MG TAB) 10 Mg Tab.ds.pk, 10 MG PO QDAY, TAB 12/07/17 Discontinued Scripts Duloxetine Hcl (CYMBALTA) 60 Mg Capsule.dr, 60 MG PO QDAY, #90 CAP 3 Refills Prov:BRADLEY SHARPE MD 07/27/17 Past Medical/Surgical History Patient has a past medical history of congestive heart failure, hypertension, obstructive sleep apnea, irritable bowel, one functioning kidney, gout, histocytosis as a child, depression. Patient has a surgical history of orchiectomy, removal of a desmoid tumor, pacemaker placement with defibrillator. Patient has a family medical history of cancer, diabetes. Reviewed Nurses Notes: Yes Hx Smoking: Yes Smoking Status: Former Smoker Exposure to Second Hand Smoke?: No Hx Substance Use Disorder: No Hx Alcohol Use: No Constitutional Vital Sign - Last 24 Hours 04/03/18 12:08 Temp 97.6 Pulse 71 Resp 18 B/P (MAP) 151/109 Pulse Ox 95 Physical Exam General Appearance: The patient is alert, has no immediate need for airway protection and no current signs of toxicity. Respiratory: Chest is non tender, lungs are clear to auscultation. Cardiac: regular rate and rhythm Musculoskeletal: Extremities have full range of motion and are non tender. Patient does have some erythema, warmth to the left fourth finger. DIFFERENTIAL DIAGNOSIS: After history and physical exam differential diagnosis was considered for gout. Medical Decision Making ED Course/Re-evaluation ED Course Patient is admitted and examined, history of physical or obtained. 2 differential diagnoses were considered. On examination lungs are clear, heart is regular. Patient does have redness and tenderness to the left fourth finger. Patient denies any fevers. He states that this feels very similar to his previous gout flares. We will go ahead and treat him with a prednisone taper. He is to return to the emergency room if condition worsens. Also give him a limited supply of tramadol to help with his pain. Patient verbalized understanding and agreement with plan. Decision to Disposition Date: Apr 03, 2018 Decision to Disposition Time: 12:29 Depart Departure Latest Vital Signs Vital Signs Date Time Temp Pulse Resp B/P (MAP) Pulse Ox O2 Delivery O2 Flow Rate FiO2 04/03/18 12:08 97.6 71 18 151/109 95 Impression: Primary Impression: Acute gouty arthritis Condition: Improved Disposition: HOME OR SELF-CARE Referrals: BRADLEY SHARPE MD (PCP) New Scripts Tramadol Hcl (ULTRAM) 50 Mg Tablet 50 MG PO Q4-6H PRN for PAIN, #12 TAB Prov: JANE SONI 04/03/18 Prednisone (PREDNISONE) 20 Mg Tablet 20 MG PO DAILY, #15 TAB Take 2 tabs daily x3 days. Then 1.5 tabs daily x3 days. Then 1 tab daily x3 days. Then 0.5 tabs daily x3 days. Prov: JANE SONI 04/03/18 Patient Instructions: Gout (ED) Additional Instructions: Continue with low purine diet. Follow up with rheumatology to discuss going back on the steroids. Continue with current medications. Follow up with cardiology to discuss blood pressure. Return to the ER if condition worsens. JANE SONI Apr 03, 2018 12:11
[2018-04-03] MEDS ORDERED: PRED20TA6 PO (12:27)
[2018-04-03] MEDS ORDERED: TRAM-627 PO (12:27)
== END 2018-04-03 12:36 | disposition home or self-care (01) ==
LOC: ER 12:10
DX: M10.9 Gout, unspecified (principal)
CPT/HCPCS: 99281

== ENCOUNTER → 2018-04-04 | Outpatient (CLI) | payer MEDICARE ==
[~2018-04-04] MED LIST changes: +TRAM-627 PO
== END ==
LOC: LAB 16:16
PROVIDERS: ATTEND Internal Medicine Cardiovascular Disease
DX: I50.22 Chronic systolic (congestive) heart failure (principal)
CPT/HCPCS: 36415; 82310; 82374; 82435; 82565; 82947; 83880; 84132; 84295; 84520

== ENCOUNTER → 2018-05-02 | Outpatient (CLI) | payer MEDICARE | LOC: LAB 16:34 | PROVIDERS: ATTEND Internal Medicine | DX: I12.9 Hypertensive chronic kidney disease with stage 1 through stage 4 chronic kidney disease, or unspecified chronic kidney disease (principal); I50.9 Heart failure, unspecified; N18.9 Chronic kidney disease, unspecified; I42.9 Cardiomyopathy, unspecified; G47.33 Obstructive sleep apnea (adult) (pediatric); E11.9 Type 2 diabetes mellitus without complications; E87.0 Hyperosmolality and hypernatremia | CPT/HCPCS: 36415; 82040; 82247; 82310; 82374; 82435; 82565; 82947; 84075; 84132; 84155; 84295; 84450; 84460; 84520 ==

== ENCOUNTER → 2018-05-18 | Outpatient (CLI) | payer MEDICARE ==
[2018-05-18 16:14] LABS: INR 1.76
== END ==
LOC: LAB 15:00
PROVIDERS: ATTEND Pharmacist Pharmacotherapy
DX: Z79.01 Long term (current) use of anticoagulants (principal)
CPT/HCPCS: 36415; 85610

== ENCOUNTER 2018-05-20 20:41 | Emergency (ER) | payer MEDICARE ==
--- NOTE | 2018-05-20 20:43 | ER Report ---
History and Physical Time Seen By MD: 20:43 HPI/ROS CHIEF COMPLAINT: Elevated blood pressure, shortness of breath HISTORY OF PRESENT ILLNESS: 42-year-old male with a history of cardiomyopathy and AICD. Was at a basketball game. He began to feel short of breath and noted his blood pressure fell elevated with some pressure in his head. He presents to the ER for evaluation. He notes no recent URI cough sore throat fever or chills. He notes no leg swelling or calf pain. Patient states that he has a hard time controlling his blood pressure. He is on several medications. He is followed by internal medicine. REVIEW OF SYSTEMS: Respiratory: As above Cardiovascular: No chest pain, no palpitations. Gastrointestinal: No vomiting, no abdominal pain. Musculoskeletal: No back pain. Allergies: Coded Allergies: No Known Drug Allergies (Verified , 04/03/18) Home Meds Active Scripts Clonidine Hcl (CLONIDINE HCL) 0.1 Mg Tablet, 0.1 MG PO BID for blood pressure control, #30 TAB Prov:CARRIE GRIFFIN DO 05/20/18 Lisinopril (LISINOPRIL) 10 Mg Tablet, 10 MG PO BID, #60 TAB 4 Refills Prov:BRADLEY SHARPE MD 04/14/18 Febuxostat (ULORIC) 40 Mg Tablet, 40 MG PO QDAY, #90 TAB 4 Refills Prov:BRADLEY SHARPE MD 03/11/18 Warfarin Sodium (WARFARIN SODIUM) 2 Mg Tablet, 1-2 TAB PO DIRECTED, #180 TAB 3 Refills Take 3 tabs on Mon, Wed, Fri Take 1 tab on , , Sat, and Sun Prov:BRADLEY SHARPE MD 12/07/17 Glipizide (GLIPIZIDE) 5 Mg Tablet, 1 TAB PO BID, #180 TAB 3 Refills Prov:BRADLEY SHARPE MD 07/27/17 Amlodipine Besylate (AMLODIPINE BESYLATE) 10 Mg Tablet, 1 TAB PO QDAY, #90 TAB 3 Refills Prov:BRADLEY SHARPE MD 07/27/17 Allopurinol (ZYLOPRIM) 300 Mg Tablet, 1 TAB PO BID, #180 TAB 3 Refills Prov:BRADLEY SHARPE MD 07/27/17 Metoprolol Succinate (TOPROL XL) 200 Mg Tab.er.24h, 1 TAB PO BID, #180 TAB 3 Refills Prov:BRADLEY SHARPE MD 07/27/17 Reported Medications Ergocalciferol (Vitamin D2) (VITAMIN D2) 50,000 Unit Capsule, 78290 UNIT PO Q30D, CAPSULE 03/31/18 Atorvastatin Calcium (ATORVASTATIN CALCIUM) 20 Mg Tablet, 1 TAB PO QDAY, TAB 03/31/18 Vitamin B Complex (B COMPLEX) 1 Each Tablet, 1 EACH PO QDAY 03/01/17 Folic Acid (FOLIC ACID) 0.4 Mg Tablet, 1 TAB PO DAILY 01/11/14 Discontinued Scripts Hydralazine Hcl (HYDRALAZINE HCL) 100 Mg Tablet, 100 MG PO TID, #270 TAB 3 Refills Prov:BRADLEY SHARPE MD 07/27/17 Past Medical/Surgical History This patient is a pleasant 42-year-old male who came in today to see me for the chief complaint that he has been having difficulty sleeping at night according to patient he has history of obstructive sleep apnea and has been on CPAP for about 5 years but lately he has noticed that he is waking up 4-6 times at night he also complains of dreaming that he is being suffocated and is still snoring Past medical history significant for chronic kidney disease and most recent labs have shown creatinine of 2.0. Albumin of 26 he is currently following up with major gifts manager he has been advised to increase by mouth fluid intake because of persistent hypernatremia he has had nonoliguric acute kidney injury in the setting of sepsis and creatinine peaked at 2.8 at that time Patient also has history of chronic gout he is currently on allopurinol 300 mg twice a day and has recently been started on ULoric 40 mg daily. He was also on prednisone but that has been stopped and is feeling well he is also following up with a block operator was recently seen in the emergency room because of acute flareup of gout and was treated with prednisone Patient also has history of chronic systolic heart failure his ejection fraction was only 20% in 2012 and has had ICD placed at that time recently in the hospital on 02/19/17 echocardiogram showed LVEF of 40-50% with normal diastolic function he is currently following up with the assembler finger buffs from [employer] for furosemide and spironolactone have been discontinued, he has another echocardiogram on 03/31/17 which has shown mildly decreased left ventricular ejection fraction of 45% with 2 x 4 diastolic dysfunction since then patient has another echocardiogram done on 09/20/2017 which has shown severe global hyp okinesia and left ventricle ejection fraction less than 25% his device was replaced on 09/20/17 patient hasn't started following up with Dr. Howard recently Medical history significant for hypertension which is difficult to control is currently on amlodipine 10 mg, metoprolol 200 mg and hydralazine 100 mg, he was recently placed on lisinopril and is currently on 10 mg daily blood pressures are still elevated Patient was also found to have hypernatremia and most recent labs have shown sodium of 152 it was done on 04/04/18 Past medical history significant for diabetes mellitus and is currently on glipizide 5 mg twice a day and hemoglobin A1c 6.4 Patient also had intermittent hematuria Reviewed Nurses Notes: Yes Old Medical Records Reviewed: Yes Hx Smoking: Yes Smoking Status: Former Smoker Exposure to Second Hand Smoke?: No Hx Substance Use Disorder: No Hx Alcohol Use: No Constitutional Vital Sign - Last 24 Hours 05/20/18 05/20/18 05/20/18 05/20/18 20:41 20:46 20:47 20:56 Temp 98.9 Pulse ??? 116 105 Resp 20 10 B/P (MAP) 214/129 (157) 214/129 Pulse Ox 96 95 O2 Delivery Room Air 05/20/18 05/20/18 05/20/18 05/20/18 21:00 21:11 21:20 21:26 Pulse 100 103 Resp 12 53 B/P (MAP) 168/99 (122) 162/99 (120) Pulse Ox 94 91 05/20/18 05/20/18 05/20/18 05/20/18 21:40 21:41 21:56 22:00 Pulse 98 108 Resp 19 25 B/P (MAP) 163/103 (123) 164/94 (117) Pulse Ox 93 95 05/20/18 05/20/18 05/20/18 05/20/18 22:11 22:20 22:26 22:40 Pulse ??? 46 Resp 21 B/P (MAP) 164/99 (120) 163/115 (131) Pulse Ox 93 05/20/18 23:06 Pulse 85 Resp 16 B/P (MAP) 156/111 (126) Pulse Ox 93 O2 Delivery Room Air Physical Exam Vital signs stable, grossly elevated blood pressure, afebrile, pulse ox normal General Appearance: The patient is alert, has no immediate need for airway protection and no current signs of toxicity. Mild distress, skin warm, dry, pink, alert and oriented 3 HEENT: Pupils equal and round no injection. Oropharynx without redness or exudate, mucous. Membranes are moist Respiratory: Chest is non tender, lungs are clear to auscultation. No wheezing or rails Cardiac: regular rate and rhythm, distant heart sounds Gastrointestinal: Abdomen is soft and non tender, no masses, bowel sounds normal. Musculoskeletal: Neck: Neck is supple and non tender. No lymphadenopathy, no JVD Extremities have full range of motion and are non tender. No edema, no calf tenderness Skin: No rashes or lesions. DIFFERENTIAL DIAGNOSIS: After history and physical exam differential diagnosis was considered for chest pain including but not limited to myocardial ischemia, pericarditis pulmonary embolus, chest wall pain, pleural inflammation and pulmonary infectious causes. Additionally,shortness of breath including but not limited to pulmonary infectious process, COPD, asthma, pulmonary embolus and congestive heart failure. Medical Decision Making Data Points Result Diagram: 05/20/18210905/20/182109 Laboratory Hematology Test 05/20/18 21:10 Red Blood Count 5.28 M/uL (4.00-5.60) Mean Corpuscular Volume 83.7 fL (80.0-96.0) Mean Corpuscular Hemoglobin 27.7 pg (26.0-33.0) Mean Corpuscular Hemoglobin Concent 33.1 g/dL (32.0-36.0) Red Cell Distribution Width 17.1 % (11.5-14.5) Mean Platelet Volume 8.7 fL (7.2-11.1) Neutrophils (%) (Auto) 68.8 % (39.4-72.5) Lymphocytes (%) (Auto) 23.1 % (17.6-49.6) Monocytes (%) (Auto) 6.2 % (4.1-12.4) Eosinophils (%) (Auto) 0.8 % (0.4-6.7) Basophils (%) (Auto) 1.1 % (0.3-1.4) Nucleated RBC Relative Count (auto) 0.0 /100WBC Neutrophils # (Auto) 5.0 K/uL (2.0-7.4) Lymphocytes # (Auto) 1.7 K/uL (1.3-3.6) Monocytes # (Auto) 0.5 K/uL (0.3-1.0) Eosinophils # (Auto) 0.1 K/uL (0.0-0.5) Basophils # (Auto) 0.1 K/uL (0.0-0.1) Nucleated RBC Absolute Count (auto) 0.00 K/uL Prothrombin Time 18.0 seconds (12.0-14.4) Prothromb Time International Ratio 1.47 Sodium Level 148 mmol/L (137-145) Potassium Level 3.9 mmol/L (3.5-5.0) Chloride Level 120 mmol/L (98-107) Carbon Dioxide Level 15 mmol/L (22-30) Blood Urea Nitrogen 21 mg/dl (9-21) Creatinine 1.90 mg/dl (0.66-1.25) Glomerular Filtration Rate Calc 39.1 Random Glucose 119 mg/dl (75-110) Calcium Level 9.6 mg/dl (8.4-10.2) Total Bilirubin 0.9 mg/dl (0.2-1.3) Aspartate Amino Transf (AST/SGOT) 41 U/L (0-35) Alanine Aminotransferase (ALT/SGPT) 38 U/L (0-56) Alkaline Phosphatase 127 U/L (0-126) Troponin I 0.025 ng/ml B-Type Natriuretic Peptide 200 pg/ml (0-100) Total Protein 7.7 g/dl (6.3-8.2) Albumin 4.4 g/dl (3.5-5.0) Chemistry Test 05/20/18 21:10 White Blood Count 7.3 k/uL (4.5-11.0) Red Blood Count 5.28 M/uL (4.00-5.60) Hemoglobin 14.6 g/dL (14.0-18.0) Hematocrit 44.2 % (42.0-52.0) Mean Corpuscular Volume 83.7 fL (80.0-96.0) Mean Corpuscular Hemoglobin 27.7 pg (26.0-33.0) Mean Corpuscular Hemoglobin Concent 33.1 g/dL (32.0-36.0) Red Cell Distribution Width 17.1 % (11.5-14.5) Platelet Count 183 K/uL (150-450) Mean Platelet Volume 8.7 fL (7.2-11.1) Neutrophils (%) (Auto) 68.8 % (39.4-72.5) Lymphocytes (%) (Auto) 23.1 % (17.6-49.6) Monocytes (%) (Auto) 6.2 % (4.1-12.4) Eosinophils (%) (Auto) 0.8 % (0.4-6.7) Basophils (%) (Auto) 1.1 % (0.3-1.4) Nucleated RBC Relative Count (auto) 0.0 /100WBC Neutrophils # (Auto) 5.0 K/uL (2.0-7.4) Lymphocytes # (Auto) 1.7 K/uL (1.3-3.6) Monocytes # (Auto) 0.5 K/uL (0.3-1.0) Eosinophils # (Auto) 0.1 K/uL (0.0-0.5) Basophils # (Auto) 0.1 K/uL (0.0-0.1) Nucleated RBC Absolute Count (auto) 0.00 K/uL Prothrombin Time 18.0 seconds (12.0-14.4) Prothromb Time International Ratio 1.47 Glomerular Filtration Rate Calc 39.1 Calcium Level 9.6 mg/dl (8.4-10.2) Total Bilirubin 0.9 mg/dl (0.2-1.3) Aspartate Amino Transf (AST/SGOT) 41 U/L (0-35) Alanine Aminotransferase (ALT/SGPT) 38 U/L (0-56) Alkaline Phosphatase 127 U/L (0-126) Troponin I 0.025 ng/ml B-Type Natriuretic Peptide 200 pg/ml (0-100) Total Protein 7.7 g/dl (6.3-8.2) Albumin 4.4 g/dl (3.5-5.0) Coagulation Test 05/20/18 21:10 Prothrombin Time 18.0 seconds Prothromb Time International Ratio 1.47 EKG/Imaging EKG Interpretation 12 lead EK Rhythm: Pacemaker rhythm, 102 bpm [place]: Unchanged QRS: Unchanged ST segments: Unchanged, comparison to previous EKG dated 07/26/17, no significant change Imaging X-ray: Two-view chest x-ray was obtained. I viewed the images myself on the PACS system. My interpretation of the images is: No infiltrate, no effusion, unchanged compared to previous chest x-ray, intact AICD. The radiologist interpretation had no clinically significant variation from this interpretation. ED Course/Re-evaluation Clinical Indication for ER IV: IV Access ED Course Patient was admitted to an examination room. H&P was done. The differential diagnosis was considered. On clinical examination, patient appears mildly elevated blood pressure. Remainder was diagnostic studies EKG, troponin, d- dimer are all unremarkable. His chest x-ray is unremarkable. His blood pressure comes down without any treatment here in the emergency department, remains borderline high in the 156 /96. Patient will be prescribed clonidine. 0.1 mg by mouth twice a day for additional blood pressure control. He is advised to take up to 4 day every 6 hours to control his blood pressure. He's advised to monitor his blood pressure through the weekend and follow up with his primary care early next week for reevaluation. Decision to Disposition Date: May 20, 2018 Decision to Disposition Time: 22:58 Depart Departure Latest Vital Signs Vital Signs Date Time Temp Pulse Resp B/P (MAP) Pulse Ox O2 Delivery O2 Flow Rate FiO2 05/20/18 23:06 85 16 156/111 (126) 93 Room Air 05/20/18 20:47 98.9 Impression: Primary Impression: Hypertension Additional Impressions: Presence of combination internal cardiac defibrillator (ICD) and pacemaker assisted current use of anticoagulant Condition: Improved Disposition: HOME OR SELF-CARE Referrals: BRADLEY SHARPE MD (PCP) New Scripts Clonidine Hcl (CLONIDINE HCL) 0.1 Mg Tablet 0.1 MG PO BID for blood pressure control, #30 TAB Prov: CARRIE GRIFFIN DO 05/20/18 Patient Instructions: Chronic Hypertension (ED) Additional Instructions: Take clonidine 0.1 mg every 6 hours as needed to control blood pressure, start with 1 tablet twice daily Record blood pressures 2-3 times per day Follow-up with Dr. Sharpe early next week Return to the ER after blood pressure is out of control. Problem Qualifiers Primary Impression: Hypertension Hypertension type: essential hypertension Qualified Codes: I10 - Essential (primary) hypertension CARRIE GRIFFIN DO May 20, 2018 20:43
[2018-05-20] MEDS ORDERED: hydrALAZINE HCL 20 MG/ML VIAL IVP ONE (21:00)
[2018-05-20 21:17] LABS: PLATELET COUNT, AUTOMATED 183 K/uL (150-450)
[2018-05-20 21:24] LABS: INR 1.47
--- NOTE | 2018-05-20 21:50 | EKG ---
FACILITY: [facility] PATIENT NAME: VIKTORIA BUSBY : [id number] MR: [id number] V: [id number] EXAM DATE: ORDERING PHYSICIAN: CARRIE GRIFFIN TECHNOLOGIST: RG Test Reason : DIZZINESS HYPERTENS Blood Pressure : / mmHG Vent. Rate : 102 BPM Atrial Rate : 102 BPM P-R Int : 140 ms QRS Dur : 134 ms QT Int : 416 ms P-R-T Axes : 058 -61 056 degrees QTc Int : 542 ms Electronic ventricular pacemaker When compared with ECG of 26-JUL-2017 22:31, Vent. rate has decreased BY 12 BPM Confirmed by Mike Kimble ([id number]) on 05/20/2018 11:04:01 PM Referred By: Confirmed By:Mike Collazo
--- NOTE | 2018-05-20 22:42 | RADIOLOGY IMAGING REPORT ---
FACILITY: [facility] PATIENT NAME: Roland Daugherty : 1975 MR: [id number] V: [id number] EXAM DATE: ORDERING PHYSICIAN: CARRIE GRIFFIN TECHNOLOGIST: Location: [facility] [place] Patient: Roland Daugherty : 1975 Visit/Account:[id number] Date of Sevice: 05/20/2018 Examination: CHEST PA AND LAT Comparison: 07/26/2017 and earlier. History: Chest Pain Findings: Cardiac and hilar contour is mildly enlarged but unchanged. AICD as before. No new or enlarging consolidation, nodule, or evidence of acute peribronchial inflammation. No pneumo thorax, edema, or effusion. No acute osseous abnormality. IMPRESSION: Unchanged chest with no evidence of acute cardiopulmonary disease. Report Dictated By: Jacques Castro MD at 05/20/2018 10:37 PM Report E-Signed By: Jacques Castro MD at 05/20/2018 10:38 PM WSN:[id number]
[2018-05-20] MEDS ORDERED: cloNIDine HCL 0.1 MG TAB PO ONE ×2 (23:00)
[2018-05-20] MEDS ORDERED: CLON-327 PO (23:00)
[2018-05-20 23:06] VITALS: BP 156/111
== END 2018-05-20 23:15 | disposition home or self-care (01) ==
LOC: ER 20:57
DX: I10 Essential (primary) hypertension (principal); Z95.810 Presence of automatic (implantable) cardiac defibrillator; Z95.0 Presence of cardiac pacemaker; Z79.01 Long term (current) use of anticoagulants
CPT/HCPCS: 71046; 83880; 84484; 85025; 85610; 93005; 99284; A9270; 82040; 82247; 82310; 82374; 82435; 82565; 82947; 84075; 84132; 84155; 84295; 84450; 84460; 84520

== ENCOUNTER → 2018-06-01 | Outpatient (CLI) | payer MEDICARE ==
[~2018-06-01] MED LIST changes: +CLON-327 PO
== END ==
LOC: RESP 19:51
PROVIDERS: ATTEND Internal Medicine
DX: G47.33 Obstructive sleep apnea (adult) (pediatric) (principal); G47.61 Periodic limb movement disorder; G47.36 Sleep related hypoventilation in conditions classified elsewhere

== ENCOUNTER 2018-06-02 09:00 | Outpatient (RCR) | payer MEDICARE ==
--- NOTE | 2018-04-19 15:35 | PT INITIAL EVALUATION ---
MEDICAL DIAGNOSIS: chronic back pain TREATMENT DIAGNOSIS: same DATE OF ONSET: [birth year] SUBJECTIVE: Roland presents to physical therapy with chronic low back pain that started approximately 20 years ago. He reports that it will be okay for a while and then it will be extremely painful for a while and has continued to go through that cycle for the past 20 years. 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 He reports that the pain becomes worse with upright sitting, standing for more than 15 minutes, walking a lot for about 30-40 minutes, and rising. He reports that the pain becomes better with slouched sitting and bending. He denies any increased pain with coughing, sneezing, and straining. He reports that his bladder control is normal. Imaging was performed X 2 weeks ago. He denies any night pain, unexplained weight loss, or any recent accidents. He reports that his pain is worsening.. Pain location is L3-L5 levels spanning from R to L PSIS. Pain scale is 1 on a ten point pain scale. REHAB PROBLEM LIST: Increased Pain Decreased ROM Decreased Strength Decreased Endurance Decreased Function Decreased ADL's Decreased Mobility PREVIOUS MEDICAL HISTORY: See EMR OCCUPATION: Stadium security OBJECTIVE: Posture: He demonstrates minimal B rounded shoulders, increased thoracic kyphosis, and reduced lumbar lordosis. He does not appear to have a lateral shift. ROM: Trunk AROM: flexion: major restriction with stretch end feel. Extension: moderate restriction with painful end feel. Side Gliding R: moderate restriction with painful end feel. Side gliding L: NIL with muscular end feel. Palpation: TTP: L3-L5 levels spanning from R to L PSIS. Sensation: Intact L2-S1 Special Tests: Repeated extension: increased L3-5 pain during the testing and worse following the test along with decreased trunk AROM in all directions and specially flexion. Repeated flexion: increases during the test and better following the test with increased trunk AROM in all directions. Mobility: Independent Gait: No gait deviations noted ASSESSMENT: Roland will benefit from skilled physical therapy to address the impairments and return to prior levels of function. His provisional classification is anterior derangement that abolished his low back pain with flexion based principles. Short Term Goals 1 week: Pt will be independent with his specific exercise. 2 weeks: Pt will demonstrate directional preference to improve function and QOL. 3 weeks: Pt will demonstrate abolished low back pain to improve function and QOL. 6 weeks: Pt will be able to return to prior levels of function and be able to work without any low back pain to improve function and QOL. Patient's Goals reduce back pain so that he can work without any problem PLAN: Patient to be seen for Manual Therapy/STM/MET Strengthening/condition Range of Motion Spinal Stabilization Work Hardening/Cond Stretching Neuromuscular Re-ed Closed Chain Program Posture/Body mechanics Gait Trg/Balance Trg Home Exercise Program Therapeutic Activities 2x/Week for 6 Weeks If you have any questions, comments, or concerns about this report or plan, please contact me at . Thank you, Mark Bruce, PT, DPT MTDD
--- NOTE | 2018-05-25 11:18 | PT PLAN OF CARE ---
Physician: Gee Lyles MD Patient is being seen: 2x/week Therapist: Mark Bruce, PT, DPT Medical Diagnosis: chronic back pain Treatment Diagnosis: same Date of Onset: 04/18/98 Date of Initial Evaluation: 04/18/18 Date patient was last seen: 05/25/18 Number of treatments: 10 Number of cancellations/No shows: 2 INTERVENTIONS: Manual Therapy/STM/MET Strengthening/condition Range of Motion Spinal Stabilization Work Hardening/Cond Stretching Neuromuscular Re-ed Closed Chain Program Posture/Body mechanics Gait Trg/Balance Trg Home Exercise Program Therapeutic Activities GOALS: 1 week: Pt will be independent with his specific exercise. MET 2 weeks: Pt will demonstrate directional preference to improve function and QOL. MET 3 weeks: Pt will demonstrate abolished low back pain to improve function and QOL. MET 6 weeks: Pt will be able to return to prior level of function and be able to work without any low back pain to improve function and QOL. Progressing well PATIENT'S GOAL: reduce back pain so that he can work without any problem: progressing well Status of Patient's Goals: Progressing well Patient Compliance: Good Prognosis: Good Reasons for continuing therapy: This is a progress note for Roland Daugherty. He reports that his low back pain is doing well. He denies any pain or soreness. He reports that he has been doing his specific exercise as prescribed. He continues to demonstrate directional preference with his low back pain and has returned to prior level with trunk AROM in all directions with normal end feels and he continues to be independent with his home exercise program. We will continue to perform his specific exercise until he demonstrates 1 week of no pain and then we will perform return to function and then discharge. Posture: He demonstrates minimal B rounded shoulders, increased thoracic kyphosis, and reduced lumbar lordosis. He does not appear to have a lateral shift. ROM: Trunk AROM: flexion: NIL with stretch end feel. Extension: NIL with normal end feel. Side Gliding R: NIL with normal end feel. Side gliding L: NIL with muscular end feel. Palpation: No longer TTP Mobility: Independent If you have any questions, please contact me at [phone]. Thank you, Mark Bruce, PT, DPT [facility]
[~2018-06-02 09:00] MED LIST changes: -AMLO-113 PO; +AMLO-127 PO; -GABA-503 PO; +GABA-533 PO
[2018-06-17] MEDS ORDERED: PRED-420 PO (08:24)
[2018-06-17] MEDS ORDERED: ALLO-119 PO (09:41)
[2018-06-17] MEDS ORDERED: AMLO-127 PO (09:41)
[2018-06-17] MEDS ORDERED: GLIP-152 PO (09:41)
[2018-06-17] MEDS ORDERED: FEBU40TA2 PO (09:41)
[2018-06-17] MEDS ORDERED: WARF2TAB13 PO (09:41)
[2018-06-17] MEDS ORDERED: ATOR20TA65 PO (09:41)
[2018-06-17] MEDS ORDERED: METO200T33 PO (09:41)
[2018-06-17] MEDS ORDERED: ERGO500037 PO (09:41)
[2018-06-17] MEDS ORDERED: LISI-362 PO (09:41)
[2018-06-17] MEDS ORDERED: CLON-327 PO (09:41)
--- NOTE | 2018-07-07 10:44 | PT PLAN OF CARE ---
Physician: Gee Lyles MD Patient is being seen: 2x/week Therapist: Mark Bruce, PT, DPT Medical Diagnosis: chronic back pain Treatment Diagnosis: same Date of Onset: 04/18/98 Date of Initial Evaluation: 04/18/18 Date patient was last seen: 07/07/18 Number of treatments: 13 Number of cancellations/No shows: 3 INTERVENTIONS: Manual Therapy/STM/MET Strengthening/condition Range of Motion Spinal Stabilization Work Hardening/Cond Stretching Neuromuscular Re-ed Closed Chain Program Posture/Body mechanics Gait Trg/Balance Trg Home Exercise Program Therapeutic Activities GOALS: 1 week: Pt will be independent with his specific exercise. MET 2 weeks: Pt will demonstrate directional preference to improve function and QOL. MET 3 weeks: Pt will demonstrate abolished low back pain to improve function and QOL. MET 6 weeks: Pt will be able to return to prior level of function and be able to work without any low back pain to improve function and QOL. MET PATIENT'S GOAL: reduce back pain so that he can work without any problem: progressing well Status of Patient's Goals: Progressing well; met Patient Compliance: Good Prognosis: Good Reasons for continuing therapy: This is a discharge note for Roland Daugherty. He reports that he is doing well. He reports that most of the time his low back pain is completely gone; however, he reports that if the low back pain does come back he is able to abolish it with his specific exercise. Overall, he feels like he can manage the pain if it ever comes back with his specific exercise. He demonstrated continued directional preference with flexion based exercise that has resulted in abolished low back pain and increased trunk AROM in all directions with normalized end feels. He is independent with his home specific exercise. He has met all of his goals. As a result, he will be discharged from PT. Posture: He demonstrates minimal B rounded shoulders, increased thoracic kyphosis, and reduced lumbar lordosis. He does not appear to have a lateral shift. ROM: Trunk AROM: flexion: NIL with stretch end feel. Extension: NIL with normal end feel. Side Gliding R: NIL with normal end feel. Side gliding L: NIL with muscular end feel. Palpation: No longer TTP Mobility: Independent If you have any questions, please contact me at [phone]. Thank you, Mark Bruce, PT, DPT [facility]
== END 2018-06-02 18:00 | disposition home or self-care (01) ==
LOC: PT 09:00
PROVIDERS: ATTEND Internal Medicine
DX: M54.9 Dorsalgia, unspecified (principal)
CPT/HCPCS: 97161

== ENCOUNTER → 2018-06-17 | Outpatient (CLI) | payer MEDICARE ==
[~2018-06-17] MED LIST changes: +AMLO-113 PO; -AMLO-127 PO; +GABA-503 PO; -GABA-533 PO
[2018-06-17 08:55] LABS: PLATELET COUNT, AUTOMATED 200 K/uL (150-450)
== END ==
LOC: LAB 08:28
PROVIDERS: ATTEND Internal Medicine
DX: M10.9 Gout, unspecified (principal); I50.9 Heart failure, unspecified; N18.9 Chronic kidney disease, unspecified; I42.9 Cardiomyopathy, unspecified; I10 Essential (primary) hypertension
CPT/HCPCS: 36415; 81001; 82040; 82247; 82306; 82310; 82374; 82435; 82465; 82565; 82947; 83036; 83718; 83880; 84075; 84132; 84155; 84295; 84443; 84450; 84460; 84478; 84520; 84550; 85025

== ENCOUNTER 2018-07-27 21:33 | Inpatient (IN) | payer MEDICARE ==
[~2018-07-27] VITALS: Ht 182.9 cm; Wt 135.2 kg
[~2018-07-27 21:33] MED LIST changes: -AMLO-113 PO; +AMLO-127 PO; -GABA-503 PO; +GABA-533 PO
--- NOTE | 2018-07-27 21:36 | ER Report ---
History and Physical Time Seen By MD: 21:36 HPI/ROS CHIEF COMPLAINT: Fever, general malaise, dehydration HISTORY OF PRESENT ILLNESS: Patient is a 42-year-old male with history significant for congestive heart failure, decreased oral intake due to lack of appetite, increased fatigue, weakness, suspected gout exacerbation. Patient reports increasing weakness, pain with ambulation, fevers. Patient was found to be tachycardic, febrile complaining of shortness of breath at time of evaluation. Denies cough, chest pain, abdominal pain, nausea, vomiting. REVIEW OF SYSTEMS: Constitutional: + fever, chills. Eyes: No discharge. ENT: No sore throat. Cardiovascular: No chest pain, no palpitations. Respiratory: No cough, + shortness of breath. Gastrointestinal: No abdominal pain, no vomiting. Genitourinary: No hematuria. Musculoskeletal: + Bilateral ankle pain, left elbow. Skin: No rashes. Neurological: No headache. Allergies: Coded Allergies: No Known Drug Allergies (Verified , 07/27/18) Home Meds Active Scripts Ergocalciferol (Vitamin D2) (VITAMIN D2) 50,000 Unit Capsule, 58255 UNIT PO Q30D, #3 CAPSULE 3 Refills Prov:BRADLEY SHARPE MD 06/17/18 Atorvastatin Calcium (ATORVASTATIN CALCIUM) 20 Mg Tablet, 1 TAB PO QDAY, #90 TAB 3 Refills Prov:BRADLEY SHARPE MD 06/17/18 Febuxostat (ULORIC) 40 Mg Tablet, 40 MG PO QDAY, #90 TAB 3 Refills Prov:BRADLEY SHARPE MD 06/17/18 Warfarin Sodium (WARFARIN SODIUM) 2 Mg Tablet, 1-2 TAB PO DIRECTED, #180 TAB 3 Refills Take 3 tabs on Mon, Wed, Fri Take 1 tab on Tu, Thurs, Sat, and Sun Prov:BRADLEY SHARPE MD 06/17/18 Glipizide (GLIPIZIDE) 5 Mg Tablet, 1 TAB PO BID, #180 TAB 3 Refills Prov:BRADLEY SHARPE MD 06/17/18 Amlodipine Besylate (AMLODIPINE BESYLATE) 10 Mg Tablet, 1 TAB PO QDAY, #90 TAB 3 Refills Prov:BRADLEY SHARPE MD 06/17/18 Allopurinol (ZYLOPRIM) 300 Mg Tablet, 1 TAB PO BID, #180 TAB 3 Refills Prov:BRADLEY SHARPE MD 06/17/18 Metoprolol Succinate (TOPROL XL) 200 Mg Tab.er.24h, 1 TAB PO BID, #180 TAB 3 Refills Prov:BRADLEY SHARPE MD 06/17/18 Reported Medications Nifedipine (NIFEDIPINE) 10 Mg Cap, 10 MG PO QDAY, CAP 07/28/18 Isosorbide Mononitrate (ISOSORBIDE MONONITRATE) 20 Mg Tablet, 25 MG PO QDAY 07/28/18 Vitamin B Complex (B COMPLEX) 1 Each Tablet, 1 EACH PO QDAY 03/01/17 Folic Acid (FOLIC ACID) 0.4 Mg Tablet, 1 TAB PO DAILY 01/11/14 Discontinued Scripts Clonidine Hcl (CLONIDINE HCL) 0.1 Mg Tablet, 0.1 MG PO BID for blood pressure control, #180 TAB 2 Refills Prov:BRADLEY SHARPE MD 06/17/18 Lisinopril (LISINOPRIL) 10 Mg Tablet, 10 MG PO DIRECTED, #270 TAB 3 Refills 2 in the morning and 1 in the evening Prov:BRADLEY SHARPE MD 06/17/18 Prednisone 10 Mg Tab (PREDNISONE 10 MG TAB) 10 Mg Tab.ds.pk, 10 MG PO DAILY, #40 TAB 4 tablets x 3 days 3 tablets x 3 days 2 tablets x 3 days 1 tablet x 3 days .5 tablets x 3 days than stop Prov:BRADLEY SHARPE MD 06/17/18 Hx Smoking: Yes Smoking Status: Former Smoker Exposure to Second Hand Smoke?: No Hx Substance Use Disorder: No Hx Alcohol Use: No Constitutional Vital Sign - Last 24 Hours 07/27/18 07/27/18 07/27/18 07/27/18 21:39 21:48 21:50 21:50 Temp 100.2 Pulse 105 112 112 Resp 20 18 28 B/P (MAP) 134/97 Pulse Ox 94 91 94 O2 Delivery Room Air Room Air 07/27/18 07/27/18 07/27/18 07/27/18 21:59 22:00 22:03 22:18 Pulse 112 118 116 Resp 28 24 32 B/P (MAP) 125/94 (104) Pulse Ox 91 96 07/27/18 07/27/18 07/27/18 07/27/18 22:33 22:48 23:00 23:03 Pulse 110 110 108 Resp 25 18 52 B/P (MAP) 118/87 (97) Pulse Ox 94 94 07/27/18 07/27/18 07/27/18 07/27/18 23:06 23:06 23:08 23:23 Temp 102.9 102.9 Pulse 109 218 Resp 29 27 Pulse Ox 95 91 07/27/18 07/27/18 07/27/18 07/28/18 23:30 23:38 23:53 00:00 Pulse 110 113 Resp 29 28 B/P (MAP) 125/84 (98) 119/82 (94) Pulse Ox 89 90 07/28/18 07/28/18 07/28/18 07/28/18 00:08 00:23 00:30 00:38 Pulse 110 108 101 Resp 27 25 B/P (MAP) 104/77 (86) Pulse Ox 91 Intake and Output 07/27/18 07/27/18 07/28/18 15:00 23:00 07:00 Intake Total 1000 ml Balance 1000 ml Physical Exam General Appearance: The patient is alert, has no immediate need for airway protection and no signs of toxicity. No acute distress Eyes: Pupils equal and round no pallor or injection. ENT, Mouth: Mucous membranes are dry Respiratory: There are no retractions, lungs are clear to auscultation. Cardiovascular: Regular, tachycardic Gastrointestinal: Abdomen is soft and non tender, no masses, bowel sounds normal. Neurological: No focal neurological findings Skin: Warm and dry, no rashes. Musculoskeletal: Neck is supple non tender. + Left elbow pain, bilateral ankle tenderness and mild edema DIFFERENTIAL DIAGNOSIS: After history and physical exam differential diagnosis was considered for adult fever including but not limited to viral syndromes including influenza, urinary tract infection, pneumonia and sepsis. Medical Decision Making Data Points Result Diagram: 07/27/18214607/27/182146 Laboratory Hematology Test 07/27/18 21:47 07/27/18 22:10 07/27/18 22:33 Red Blood Count 5.40 M/uL (4.00-5.60) Mean Corpuscular Volume 85.3 fL (80.0-96.0) Mean Corpuscular Hemoglobin 28.1 pg (26.0-33.0) Mean Corpuscular Hemoglobin Concent 32.9 g/dL (32.0-36.0) Red Cell Distribution Width 16.0 % (11.5-14.5) Mean Platelet Volume 8.8 fL (7.2-11.1) Neutrophils (%) (Auto) 67.9 % (39.4-72.5) Lymphocytes (%) (Auto) 17.7 % (17.6-49.6) Monocytes (%) (Auto) 13.5 % (4.1-12.4) Eosinophils (%) (Auto) 0.2 % (0.4-6.7) Basophils (%) (Auto) 0.7 % (0.3-1.4) Nucleated RBC Relative Count (auto) 0.1 /100WBC Neutrophils # (Auto) 4.5 K/uL (2.0-7.4) Lymphocytes # (Auto) 1.2 K/uL (1.3-3.6) Monocytes # (Auto) 0.9 K/uL (0.3-1.0) Eosinophils # (Auto) 0.0 K/uL (0.0-0.5) Basophils # (Auto) 0.1 K/uL (0.0-0.1) Nucleated RBC Absolute Count (auto) 0.01 K/uL Prothrombin Time 19.5 seconds (12.0-14.4) Prothromb Time International Ratio 1.63 Activated Partial Thromboplast Time 36 seconds (23-35) Sodium Level 145 mmol/L (137-145) Potassium Level 4.0 mmol/L (3.5-5.0) Chloride Level 118 mmol/L (98-107) Carbon Dioxide Level 16 mmol/L (22-30) Blood Urea Nitrogen 27 mg/dl (9-21) Creatinine 2.50 mg/dl (0.66-1.25) Glomerular Filtration Rate Calc 28.5 Random Glucose 142 mg/dl (75-110) Lactate 2.1 mmol/L (0.7-2.1) Calcium Level 9.7 mg/dl (8.4-10.2) Total Bilirubin 0.4 mg/dl (0.2-1.3) Aspartate Amino Transf (AST/SGOT) 86 U/L (0-35) Alanine Aminotransferase (ALT/SGPT) 75 U/L (0-56) Alkaline Phosphatase 133 U/L (0-126) Troponin I 0.021 ng/ml Total Protein 7.4 g/dl (6.3-8.2) Albumin 4.6 g/dl (3.5-5.0) Influenza Virus Type A (PCR) Negative (NEGATIVE) Influenza Virus Type B (PCR) Negative (NEGATIVE) Urine Color Yellow Urine Clarity Clear Urine pH 5.0 pH (4.8-9.5) Urine Specific [place] 1.015 Urine Protein 100 mg/dL (NEGATIVE) Urine Glucose (UA) Negative mg/dL (NEGATIVE) Urine Ketones Negative mg/dL (NEGATIVE) Urine Blood Negative (NEGATIVE) Urine Nitrite Negative (NEGATIVE) Urine Bilirubin Negative (NEGATIVE) Urine Urobilinogen Negative mg/dL (0.2-1.9) Urine Leukocyte Esterase Negative (NEGATIVE) Urine RBC 2 /HPF (0-2/HPF) Urine WBC 1 /HPF (0-5/HPF) Urine Squamous Epithelial Cells Few /LPF (</=FEW) Urine Bacteria Negative /HPF (NONE-FEW) Urine Hyaline Casts Few /LPF (NONE-FEW) Urine Mucus Few /HPF (NONE-FEW) Chemistry Test 07/27/18 21:47 07/27/18 22:10 07/27/18 22:33 White Blood Count 6.7 k/uL (4.5-11.0) Red Blood Count 5.40 M/uL (4.00-5.60) Hemoglobin 15.2 g/dL (14.0-18.0) Hematocrit 46.0 % (42.0-52.0) Mean Corpuscular Volume 85.3 fL (80.0-96.0) Mean Corpuscular Hemoglobin 28.1 pg (26.0-33.0) Mean Corpuscular Hemoglobin Concent 32.9 g/dL (32.0-36.0) Red Cell Distribution Width 16.0 % (11.5-14.5) Platelet Count 199 K/uL (150-450) Mean Platelet Volume 8.8 fL (7.2-11.1) Neutrophils (%) (Auto) 67.9 % (39.4-72.5) Lymphocytes (%) (Auto) 17.7 % (17.6-49.6) Monocytes (%) (Auto) 13.5 % (4.1-12.4) Eosinophils (%) (Auto) 0.2 % (0.4-6.7) Basophils (%) (Auto) 0.7 % (0.3-1.4) Nucleated RBC Relative Count (auto) 0.1 /100WBC Neutrophils # (Auto) 4.5 K/uL (2.0-7.4) Lymphocytes # (Auto) 1.2 K/uL (1.3-3.6) Monocytes # (Auto) 0.9 K/uL (0.3-1.0) Eosinophils # (Auto) 0.0 K/uL (0.0-0.5) Basophils # (Auto) 0.1 K/uL (0.0-0.1) Nucleated RBC Absolute Count (auto) 0.01 K/uL Prothrombin Time 19.5 seconds (12.0-14.4) Prothromb Time International Ratio 1.63 Activated Partial Thromboplast Time 36 seconds (23-35) Glomerular Filtration Rate Calc 28.5 Lactate 2.1 mmol/L (0.7-2.1) Calcium Level 9.7 mg/dl (8.4-10.2) Total Bilirubin 0.4 mg/dl (0.2-1.3) Aspartate Amino Transf (AST/SGOT) 86 U/L (0-35) Alanine Aminotransferase (ALT/SGPT) 75 U/L (0-56) Alkaline Phosphatase 133 U/L (0-126) Troponin I 0.021 ng/ml Total Protein 7.4 g/dl (6.3-8.2) Albumin 4.6 g/dl (3.5-5.0) Influenza Virus Type A (PCR) Negative (NEGATIVE) Influenza Virus Type B (PCR) Negative (NEGATIVE) Urine Color Yellow Urine Clarity Clear Urine pH 5.0 pH (4.8-9.5) Urine Specific [place] 1.015 Urine Protein 100 mg/dL (NEGATIVE) Urine Glucose (UA) Negative mg/dL (NEGATIVE) Urine Ketones Negative mg/dL (NEGATIVE) Urine Blood Negative (NEGATIVE) Urine Nitrite Negative (NEGATIVE) Urine Bilirubin Negative (NEGATIVE) Urine Urobilinogen Negative mg/dL (0.2-1.9) Urine Leukocyte Esterase Negative (NEGATIVE) Urine RBC 2 /HPF (0-2/HPF) Urine WBC 1 /HPF (0-5/HPF) Urine Squamous Epithelial Cells Few /LPF (</=FEW) Urine Bacteria Negative /HPF (NONE-FEW) Urine Hyaline Casts Few /LPF (NONE-FEW) Urine Mucus Few /HPF (NONE-FEW) Coagulation Test 07/27/18 21:47 Prothrombin Time 19.5 seconds Prothromb Time International Ratio 1.63 Activated Partial Thromboplast Time 36 seconds Urinalysis Test 07/27/18 22:33 Urine Color Yellow Urine Clarity Clear Urine pH 5.0 pH (4.8-9.5) Urine Specific [place] 1.015 Urine Protein 100 mg/dL (NEGATIVE) Urine Glucose (UA) Negative mg/dL (NEGATIVE) Urine Ketones Negative mg/dL (NEGATIVE) Urine Blood Negative (NEGATIVE) Urine Nitrite Negative (NEGATIVE) Urine Bilirubin Negative (NEGATIVE) Urine Urobilinogen Negative mg/dL (0.2-1.9) Urine Leukocyte Esterase Negative (NEGATIVE) Urine RBC 2 /HPF (0-2/HPF) Urine WBC 1 /HPF (0-5/HPF) Urine Squamous Epithelial Cells Few /LPF (</=FEW) Urine Bacteria Negative /HPF (NONE-FEW) Urine Hyaline Casts Few /LPF (NONE-FEW) Urine Mucus Few /HPF (NONE-FEW) EKG/Imaging EKG Interpretation 12 lead EKG: Rhythm: Electronic ventricular pacemaker, ventricular rate 110, QTC 516 [place] [facility] [place] Roland D[place] : 1975 Visit/Account:[id number] Date of Sevice: 07/27/2018 CHEST SINGLE AP 07/27/2018 21:48 hours. HISTORY: Shortness of breath and fever. History of CHF. COMPARISON: 05/20/2018 and studies dating to 09/14/2011. TECHNIQUE: Portable AP view of the chest. FINDINGS: Tubes/lines/hardware: ICD generator projects at the left lateral mid to lower chest, and leads terminate in the right atrium, the right ventricle, and the coronary sinus. There are external chest leads. Pulmonary/pleura: Lungs are clear. There is no pneumothorax or pleural effusion. Cardiomediastinal: The cardiac silhouette is enlarged, stable. The mediastinal silhouette is within normal limits. Bones/soft tissues: No acute osseous abnormality. The visible abdomen is normal. IMPRESSION: 1. No acute cardiopulmonary process. 2. Stable mild cardiomegaly. ED Course/Re-evaluation ED Course Patient is a 42-year-old male here with complaints of fever, general malaise, weakness in the setting of multiple significant comorbidities including CHF, CKD. Patient was given a liter fluid, Tylenol without significant improvement and tachycardia, fever increased in spite of treatment. Patient was found to have acute on chronic kidney injury, however there is no leukocytosis, influenza was negative. Patient did complain of shortness breath however chest x-ray showed no acute findings of pneumonia or effusions. Due to the patient's clinical presentation and comorbidities, patient was discussed with Dr. Tony Florentino who accepted the patient to the hospitalist service. Decision to Disposition Date: Jul 28, 2018 Decision to Disposition Time: 00:30 Depart Departure Latest Vital Signs Vital Signs Date Time Temp Pulse Resp B/P (MAP) Pulse Ox O2 Delivery O2 Flow Rate FiO2 07/28/18 00:38 101 25 91 07/28/18 00:30 104/77 (86) 07/27/18 23:06 102.9 07/27/18 21:50 Room Air Impression: Primary Impression: Acute gouty arthritis Additional Impression: Acute kidney injury (nontraumatic) Condition: Condition Unchanged Disposition: Admitted from ER Referrals: BRADLEY SHARPE MD (PCP) Problem Qualifiers NEELA WILLIAMSON DO Jul 27, 2018 21:36
[2018-07-27] MEDS ORDERED: ACETAMINOPHEN 500 MG TAB PO ONE (21:50)
[2018-07-27] MEDS ORDERED: ALBUTEROL/IPRATROPIUM 3 ML NEB NEB ONE (21:50)
[2018-07-27] MEDS ORDERED: NS(*) 0.9% 1000 ML BAG 1,000 ML IV ONE (21:50)
[2018-07-27 22:07] LABS: PLATELET COUNT, AUTOMATED 199 K/uL (150-450)
[2018-07-27 22:21] LABS: INR 1.63
--- NOTE | 2018-07-27 22:32 | RADIOLOGY IMAGING REPORT ---
[place] [facility] [place] NAME: Roland Daugherty : 1975 MR: [id number] V: [id number] EXAM DATE: ORDERING PHYSICIAN: NEELA WILLIAMSON TECHNOLOGIST: Location: [facility] Patient: Roland Daugherty : 1975 Visit/Account:[id number] Date of Sevice: 07/27/2018 CHEST SINGLE AP 07/27/2018 21:48 hours. HISTORY: Shortness of breath and fever. History of CHF. COMPARISON: 05/20/2018 and studies dating to 09/14/2011. TECHNIQUE: Portable AP view of the chest. FINDINGS: Tubes/lines/hardware: ICD generator projects at the left lateral mid to lower chest, and leads termin ate in the right atrium, the right ventricle, and the coronary sinus. There are external chest leads. Pulmonary/pleura: Lungs are clear. There is no pneumothorax or pleural effusion. Cardiomediastinal: The cardiac silhouette is enlarged, stable. The mediastinal silhouette is within n ormal limits. Bones/soft tissues: No acute osseous abnormality. The visible abdomen is normal. IMPRESSION: 1. No acute cardiopulmonary process. 2. Stable mild cardiomegaly. Report Dictated By: Sigrid Martinez at 07/27/2018 10:26 PM Report E-Signed By: Sigrid Martinez at 07/27/2018 10:28 PM WSN:[id number]
[2018-07-27] MEDS ORDERED: KETOROLAC 15 MG/ML VIAL IVP ONE (23:25)
[2018-07-28] MEDS ORDERED: NS(*) 0.9% 1000 ML BAG 1,000 ML IV PRN (00:26)
[2018-07-28] MEDS ORDERED: INFLUENZA VIRUS VAC 0.5ML SYR IM ONLY ONE (00:30)
[2018-07-28] MEDS ORDERED: INSULIN HUM LISPRO 100 UN/ML 3 ML VIAL SUBQ PRN (00:35)
--- NOTE | 2018-07-28 01:00 | EKG ---
[place] [facility] [place]: VIKTORIA BUSBY : [id number] MR: [id number] V: [id number] EXAM DATE: ORDERING PHYSICIAN: NEELA WILLIAMSON TECHNOLOGIST: SERJIO Test Reason : SOB Blood Pressure : / mmHG Vent. Rate : 111 BPM Atrial Rate : 111 BPM P-R Int : 138 ms QRS Dur : 146 ms QT Int : 380 ms P-R-T Axes : 058 -70 057 degrees QTc Int : 516 ms Electronic ventricular pacemaker When compared with ECG of 20-MAY-2018 20:54, Vent. rate has increased BY 9 BPM Confirmed by EDELMIRA FRAUSTO ([id number]) on 07/28/2018 6:53:56 AM Referred By: Confirmed By:EDELMIRA FRAUSTO
[2018-07-28 01:06] VITALS: BP 136/85
--- NOTE | 2018-07-28 01:09 | History & Physical ---
History of Present Illness History of Present Illness 42yo male with a h/o gout, ckd, HFrEF, and JEF who came to the ER for increased somnolence, clumsiness, and chills for the last 2 days. For the last couple months, his CPAP isn't set appropriately, so he is waking up related to snoring multiple times a night. He chronically has problems with keeping his balance or feeling lightheaded after standing up. However, over the last couple of days he has been more clumsy when getting up. No reported falls or LOC. He has had a flare of gout in his right elbow and left ankle over the last couple of days. Tonight, he was at the basketball game and was really tired when he left, so his brought him in. He denies orthopnea, worsening LE edema, dysuria, cough, SOB, CP, abdominal pain, coryza, neck stiffness. He had some mild nausea today. His chronic loose stools are unchanged in frequency. In the ER, he had a fever to 102.9. He was givenToradol, DuoNeb, APAP and IVF. History Problems: (1) ARF (acute renal failure) Status: Acute (2) Gout Status: Acute (3) CKD (chronic kidney disease) (4) CHF (congestive heart failure) Status: Chronic (5) JEF on CPAP Status: Chronic (6) Presence of combination internal cardiac defibrillator (ICD) and pacemaker (7) [facility] current use of anticoagulant Status: Chronic (8) Hypertension Status: Chronic (9) History of histiocytosis Home Meds Active Scripts Clonidine Hcl (CLONIDINE HCL) 0.1 Mg Tablet, 0.1 MG PO BID for blood pressure control, #180 TAB 2 Refills Prov:BRADLEY SHARPE MD 06/17/18 Lisinopril (LISINOPRIL) 10 Mg Tablet, 10 MG PO DIRECTED, #270 TAB 3 Refills 2 in the morning and 1 in the evening Prov:BRADLEY SHARPE MD 06/17/18 Ergocalciferol (Vitamin D2) (VITAMIN D2) 50,000 Unit Capsule, 33986 UNIT PO Q30D, #3 CAPSULE 3 Refills Prov:BRADLEY SHARPE MD 06/17/18 Atorvastatin Calcium (ATORVASTATIN CALCIUM) 20 Mg Tablet, 1 TAB PO QDAY, #90 TAB 3 Refills Prov:BRADLEY SHARPE MD 06/17/18 Febuxostat (ULORIC) 40 Mg Tablet, 40 MG PO QDAY, #90 TAB 3 Refills Prov:BRADLEY SHARPE MD 06/17/18 Warfarin Sodium (WARFARIN SODIUM) 2 Mg Tablet, 1-2 TAB PO DIRECTED, #180 TAB 3 Refills Take 3 tabs on Mon, Wed, Fri Take 1 tab on Tues, Thurs, Sat, and Sun Prov:BRADLEY SHARPE MD 06/17/18 Glipizide (GLIPIZIDE) 5 Mg Tablet, 1 TAB PO BID, #180 TAB 3 Refills Prov:BRADLEY SHARPE MD 06/17/18 Amlodipine Besylate (AMLODIPINE BESYLATE) 10 Mg Tablet, 1 TAB PO QDAY, #90 TAB 3 Refills Prov:BRADLEY SHARPE MD 06/17/18 Allopurinol (ZYLOPRIM) 300 Mg Tablet, 1 TAB PO BID, #180 TAB 3 Refills Prov:BRADLEY SHARPE MD 06/17/18 Metoprolol Succinate (TOPROL XL) 200 Mg Tab.er.24h, 1 TAB PO BID, #180 TAB 3 Refills Prov:BRADLEY SHARPE MD 06/17/18 Prednisone 10 Mg Tab (PREDNISONE 10 MG TAB) 10 Mg Tab.ds.pk, 10 MG PO DAILY, #40 TAB 4 tablets x 3 days 3 tablets x 3 days 2 tablets x 3 days 1 tablet x 3 days .5 tablets x 3 days than stop Prov:BRADLEY SHARPE MD 06/17/18 Reported Medications Vitamin B Complex (B COMPLEX) 1 Each Tablet, 1 EACH PO QDAY 03/01/17 Folic Acid (FOLIC ACID) 0.4 Mg Tablet, 1 TAB PO DAILY 01/11/14 Allergies: Coded Allergies: No Known Drug Allergies (Verified , 07/27/18) Patient History: FH: cancer MOTHER, , Age:55 FH: diabetes mellitus MOTHER, , Age:55 FH: pancreatic cancer MOTHER, , Age:55 FH: pulmonary embolism FATHER, , Age:43 FH: sleep apnea FATHER, , Age:43 Hx Smoking: Yes Smoking Status: Former Smoker Exposure to Second Hand Smoke?: No Hx Alcohol Use: No Hx Substance Use Disorder: No Review of Systems All Systems Reviewed/Normal: Yes, Except as Noted Exam Vital Signs Vital Signs Date Time Temp Pulse Resp B/P (MAP) Pulse Ox O2 Delivery O2 Flow Rate FiO2 07/27/18 23:06 102.9 07/27/18 23:03 108 52 94 07/27/18 23:00 118/87 (97) 07/27/18 21:50 Room Air General Appearance: Alert, Awake, No Acute Distress Neuro: No Gross deficits Eyes: PERRLA ENT: Moist Mucous Membranes Cardiovascular: Regular Rate and Rhythm (borderline tachy) Respiratory: Clear to Auscultation GI: Abd Soft and Non-Tender Musculoskeletal: Other (Reported pain with palpation of R elbow and L ankle. No obvious swelling or erythema) Extremities: Edema (trace pitting above socks to knees bilaterally) Integumentary: No Jaundice, No Cyanosis Medical Decision Making Data Points Result Diagram: 07/27/18214607/27/182146 Item Value Date Time Prothromb Time International Ratio 1.63 07/27/182146 Neutrophils (%) (Auto) 67.9 % 07/27/182146 Lymphocytes (%) (Auto) 17.7 % 07/27/182146 Monocytes (%) (Auto) 13.5 % H 07/27/182146 Eosinophils (%) (Auto) 0.2 % L 07/27/182146 Urine Leukocyte Esterase Negative 07/27/182232 Urine RBC 2 /HPF 07/27/182232 Urine WBC 1 /HPF 07/27/18 223 Urine Squamous Epithelial Cells Few /LPF 07/27/182232 Troponin I 0.021 ng/ml 07/27/182146 Total Bilirubin 0.4 mg/dl 07/27/182146 Aspartate Amino Transf (AST/SGOT) 86 U/L H 07/27/182146 Alanine Aminotransferase (ALT/SGPT) 75 U/L H 07/27/182146 Alkaline Phosphatase 133 U/L H 07/27/182146 Creatinine 1.90 mg/dl H 06/17/18 0836 EKG / Imaging Imaging CXR - 1. No acute cardiopulmonary process. 2. Stable mild cardiomegaly. Assessment and Plan Problems: (1) ARF (acute renal failure) Status: Acute Assessment & Plan: His creatinine today is 2.5 and his baseline is 1.7 to 2.0. Likely, secondary to dehydration. He received 1 liter of NS in the ER and will continue at 125cc/hour. Recheck BMP in a couple of hours. (2) Fever Status: Acute Assessment & Plan: Etiology unclear. WBC and percentage neutrophils WNL. UA and CXR clear. No localizing symptoms. He reports getting fevers with gout flares. He does have an indwelling pacemaker/defibrillator, so blood cultures were drawn. (3) Fatigue Status: Acute Assessment & Plan: Symptoms for a couple of days. Likely, related to the fever. Will check an ABG after wearing CPAP and check an ammonia. Will check a CPK/CRP because of the elevation in AST/ALT. TSH was elevated in June, so will recheck. (4) Balance problems Status: Acute Assessment & Plan: He has difficulty keeping his balance with standing, which has worsened over the last couple of days. He likely has some component of orthostatic hypotension, but there also sounds to be a "clumsiness" aspect. Will ask PT to evaluate. (5) Gout Status: Acute Assessment & Plan: He has chronically has intermittent flares. He is reporting right elbow and left ankle flare for the last couple of days. Will hold off on starting prednisone until infection can be ruled out. Will continue the chronic allopurinol and Uloric. Will check a CPK because of the elevation in AST/ALT. (6) JEF on CPAP Status: Chronic Assessment & Plan: He reports that for the last couple of months that he has been waking more related to snoring and that he is supposed to get a new machine. Will place on CPAP tonight and titrate to comfort. Check an ABG in the morning. (7) Hypertension Status: Chronic Assessment & Plan: Continue chronic Toprol, clonidine, and amlodipine with parameters. He recently was put on isosorbide and the lisinopril was stopped. Will hold the isosorbide for now. (8) Diabetes mellitus Status: Chronic Assessment & Plan: Continue chronic glipizide, AC and HS glucose with SSI level 1 to cover. (9) CHF (congestive heart failure) Status: Chronic Assessment & Plan: Reportedly, he had an echo last month with an EF of 55%. It was 20% in 2012 and has slowly improved. Continue chronic Toprol. No evidence of exacerbation. (10) [facility] current use of anticoagulant Status: Chronic Assessment & Plan: INR is subtherapeutic. Continue chronic warfarin with daily INR. Copies to: BRADLEY SHARPE MD ; Venous Thromboembolism Antithrombotics Is Pt On Any Antithrombotics?: Yes Exam Sepsis Risk: Possible Sepsis Risk Problem Qualifiers (1) CHF (congestive heart failure): Heart failure type: systolic EDELMIRA FRAUSTO MD Jul 28, 2018 01:09
[2018-07-28] MEDS ORDERED: NIF10 PO (01:14)
[2018-07-28] MEDS ORDERED: ISOS20TA64 PO (01:14)
[2018-07-28 04:31] VITALS: BP 134/93
[2018-07-28 06:06] LABS: PLATELET COUNT, AUTOMATED 142 K/uL (150-450)
[2018-07-28 06:09] LABS: INR 1.51
[2018-07-28 08:06] VITALS: BP 135/89
[2018-07-28] MEDS: glipiZIDE 5 MG TAB PO SCH ×2 (08:15→16:37)
[2018-07-28] MEDS: cloNIDine HCL 0.1 MG TAB PO SCH ×2 (08:15→21:24)
[2018-07-28] MEDS: METOPROLOL SUCC XL 50 MG TABCR 50 MG TAB.ER.24H PO SCH ×2 (08:15→21:24)
--- NOTE | 2018-07-28 09:11 | NUR ---
Physical Therapy Impression PT eval complete. Pt completed bed mobility, transfers and mobility with René and no AD. Pt with no LOB during mobility, with pt demonstrating good ability to negotiate stairs with a single railing. The patient reports his balance impairments frequently occur secondary to gout flares. The patient has no inpatient PT needs at this time and is safe to d/c from a mobility stand point when medically appropriate. PT discussed OP PT services with the patient if he would like to work on balance and strength. Pt verbalized understanding. Physical Therapy Goals Patient's Goals
[2018-07-28] MEDS ORDERED: WARFARIN SOD 6 MG TAB PO SCH (13:00)
--- NOTE | 2018-07-28 13:41 | Medical Nutrition Therapy ---
Nutrition Anthropometrics Height (Inches): 72.00 Height (Calculated Centimeters: 182.341996 Weight (Pounds): 298 Weight (Calculated Kilograms): 135.171 BMI: 40.4 Wilfred Nutrition Score: Adequate Wilfred Nutrition Risk Score: 22 Dietary Referral Nutrition Risk Factors: Nutrition Risk Comment: Physical Findings Physical Appearance: Morbidly Obese 40+ Skin Appearance Skin Appearance: Edema Edema Location Modifier: Both Edema Location: Lower Extremity Type of Edema: Degree of Edema: Gastrointestinal Symptoms GI Symtoms: Diarrhea Tube Present: Bowel Sounds: Recent Bowel Pattern: Diarrhea Stool Characteristics: Loose Nutritional Diagnosis Nutritional Risk Acuity 1: Acute/ES Renal Nutritional Risk Acuity 3: Morbid Obesity Past Medical History: T2DM, Gout, JEF,CKD Nutritional Acuity: 1-High Nutrition Diagnosis: Decreased Nutrient Needs Nutrition Etiology: Physiological Causes Nutrition Problem/Etiology/Sym: Decreased protein, K+, phos, Na r/t DX ARF AEB BUN 20, creatinine 2.2 Adjusted Energy Requirement Re: 2700 (25 kcal/kg) Protein Requirement: 82 (1gm/kg IBW) Fluid Requirement: 2700 (1ml/kcal) Diet Type: Diabetic Nutrition Intervention: Cont diet as ordered, Encourage intake Nutritional Education Nutrition Education Topic: Diabetic Nutrition Learning Readiness: Interested Teaching Methods: Discussion, Handout Response to Teaching: Verbalize understanding Teaching Recipient: Patient Nutrition Counseling: Pt states "watches diet" for him. Discussed glycemic response and identifided high glycemic index foods pt has been eating. Provided handout on plate method diet and reviewed. Encouraged pt to limit CHO to ~ 2c/meal. Pt stated he knew he should lose wt for better BG control and help with gout. Pt states exercise is difficult because of his gout. Recommend pt consider swimming. Encouraged pt to attend [facility] with referral from PCP. Nutrition Monitoring & Eval Nutrition Goals: Eat 75-100% Meal RD Patient Assessment Time: [address] Assessment Type: RD Assessment Patient Nutrition Acuity: 1-High Follow Up Date: Jul 31, 2018 Nutritional Comment: 07/18 Pt admitted with ARF. Pt has hx of T2DM. Pt on diabetic diet. Pt refused breakfast but ate 100% of lunch and supper. Pt is recieving glipazide. BG ranging 114-142. Alb 3.5. BUN/creatinine cont elevated but has improved to 30/2.2. Will cont to monitor and encourage intake. PITER ARMIJO Jul 28, 2018 12:51
[2018-07-28 15:31] VITALS: BP 137/87
[2018-07-28 18:40] VITALS: BP 149/95
[2018-07-28] MEDS ORDERED: NIFE-13 PO (20:05)
[2018-07-28] MEDS ORDERED: ISOS30TA54 PO (20:05)
[2018-07-28] MEDS ORDERED: TORS20TA30 PO (20:05)
[2018-07-28] MEDS ORDERED: TEL40 PO (20:05)
[2018-07-28] MEDS ORDERED: HYDR50TA35 PO (20:05)
[2018-07-28] MEDS ORDERED: LISI-362 PO (20:05)
[2018-07-28] MEDS ORDERED: predniSONE 20 MG TAB PO ONE (20:30)
[2018-07-28 21:00] VITALS: BP 159/104
[2018-07-28] MEDS ORDERED: PATIENT'S OWN MED PO SCH (21:00)
[2018-07-28] MEDS ORDERED: amLODIPine BESYL(*) 5 MG TAB PO SCH (21:00)
[2018-07-28] MEDS ORDERED: ATORVASTATIN 10 MG TAB PO SCH (21:00)
[2018-07-28] MEDS ORDERED: ACETAMINOPHEN 500 MG TAB PO PRN (21:40)
[2018-07-29 01:30] VITALS: BP 138/92
[2018-07-29 06:20] LABS: INR 1.31; PLATELET COUNT, AUTOMATED 137 K/uL (150-450)
[2018-07-29 07:21] VITALS: BP 134/104
[2018-07-29] MEDS: glipiZIDE 5 MG TAB PO SCH (08:03)
--- NOTE | 2018-07-29 08:42 | Hospitalist Depart ---
Discharge Summary Reason for Hosp/Final Diag: (1) ARF (acute renal failure) Status: Acute Hospital Course & Plan: His creatinine upon admission was 2.5 and his baseline is 1.7 to 2.0. This morning, his creatinine has decreased to 1.9. Likely, secondary to dehydration. He received IV hydration. (2) Fever Status: Acute Hospital Course & Plan: Etiology unclear. WBC and percentage neutrophils WNL. UA and CXR clear. No localizing symptoms. He reports getting fevers with gout flares. He does have an indwelling pacemaker/defibrillator, blood cultures are negative. (3) Fatigue Status: Acute Hospital Course & Plan: Symptoms for a couple of days. Likely, related to the fever. ABG shows metabolic acidosis, likely related to kidney injury. Ammonia wnl. CRP slightly elevated, but likely from gout flare. TSH is normal at 2.11. He was evaluated by PT with no further recommendations. He was able to be independent throughout admission without difficulty. He reports improvement in symptoms. (4) Balance problems Status: Acute Hospital Course & Plan: He has difficulty keeping his balance with standing, which has worsened over the last couple of days. He likely has some component of orthostatic hypotension, but there also sounds to be a "clumsiness" aspect. PT has cleared patient for discharge. (5) Gout Status: Acute Hospital Course & Plan: He has chronically has intermittent flares. He is reporting right elbow and left ankle flare for the last couple of days. He did receive a dose of prednisone last night, he reports improvement in symptoms this am. Will continue the chronic allopurinol and Uloric. (6) JEF on CPAP Status: Chronic Hospital Course & Plan: He reports that for the last couple of months that he has been waking more related to snoring and that he is supposed to get a new machine. Will place on CPAP tonight and titrate to comfort. Check an ABG in the morning. (7) Hypertension Status: Chronic Hospital Course & Plan: Continue chronic Lisinopril, Isosorbide, Toprol, clonidine, and amlodipine with parameters. (8) Diabetes mellitus Status: Chronic Hospital Course & Plan: Continue chronic glipizide. He was placed on AC and HS glucose with SSI level 1 to cover during admission. (9) CHF (congestive heart failure) Status: Chronic Hospital Course & Plan: Reportedly, he had an echo last month with an EF of 55%. It was 20% in 2012 and has slowly improved. Continue chronic Toprol. No evidence of exacerbation. 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 Continue chronic warfarin with daily INR. Departure Latest Vital Signs Vital Signs 07/28/18 07/28/18 07/28/18 07/29/18 02:40 15:31 18:40 07:21 Temp 97.8 Pulse 64 Resp 18 B/P (MAP) 134/104 (114) Pulse Ox 92 O2 Delivery CPAP O2 Flow Rate 1.5 FiO2 40.0 Weight (Pounds): 298 Result Diagram: 07/29/1847 07/29/18546 Condition: Improved Discharge: Home, Self Care Discharge Instructions Home Meds Active Scripts Ergocalciferol (Vitamin D2) (VITAMIN D2) 50,000 Unit Capsule, 92923 UNIT PO Q30D, #3 CAPSULE 3 Refills Prov:BRADLEY SHARPE MD 06/17/18 Atorvastatin Calcium (ATORVASTATIN CALCIUM) 20 Mg Tablet, 1 TAB PO QDAY, #90 TAB 3 Refills Prov:BRADLEY SHARPE MD 06/17/18 Warfarin Sodium (WARFARIN SODIUM) 2 Mg Tablet, 1-2 TAB PO DIRECTED, #180 TAB 3 Refills Take 3 tabs on Mon, Wed, Fri Take 1 tab on , Th, Sat, and Sun Prov:BRADLEY SHARPE MD 06/17/18 Glipizide (GLIPIZIDE) 5 Mg Tablet, 1 TAB PO BID, #180 TAB 3 Refills Prov:BRADLEY SHARPE MD 06/17/18 Amlodipine Besylate (AMLODIPINE BESYLATE) 10 Mg Tablet, 1 TAB PO QDAY, #90 TAB 3 Refills Prov:BRADLEY SHARPE MD 06/17/18 Allopurinol (ZYLOPRIM) 300 Mg Tablet, 1 TAB PO BID, #180 TAB 3 Refills Prov:BRADLEY SHARPE MD 06/17/18 Metoprolol Succinate (TOPROL XL) 200 Mg Tab.er.24h, 1 TAB PO BID, #180 TAB 3 Refills Prov:BRADLEY SHARPE MD 06/17/18 Reported Medications Torsemide (TORSEMIDE) 20 Mg Tablet, 20 MG PO QDAY 07/28/18 Telmisartan (MICARDIS) 40 Mg Tab, 40 MG PO QDAY, TAB 07/28/18 Lisinopril (LISINOPRIL) 10 Mg Tablet, 10 MG PO BID, TAB 07/28/18 Hydralazine Hcl (HYDRALAZINE HCL) 50 Mg Tablet, 50 MG PO TID, TAB 07/28/18 Nifedipine (NIFEDIPINE ER) 30 Mg Tablet.er, 30 MG PO QDAY 07/28/18 Isosorbide Mononitrate (ISOSORBIDE MONONITRATE ER) 30 Mg Tab.er.24h, 30 MG PO QDAY 07/28/18 Vitamin B Complex (B COMPLEX) 1 Each Tablet, 1 EACH PO QDAY 03/01/17 Folic Acid (FOLIC ACID) 0.4 Mg Tablet, 1 TAB PO DAILY 01/11/14 Discontinued Reported Medications Nifedipine (NIFEDIPINE) 10 Mg Cap, 10 MG PO QDAY, CAP 07/28/18 Isosorbide Mononitrate (ISOSORBIDE MONONITRATE) 20 Mg Tablet, 25 MG PO QDAY 07/28/18 Discontinued Scripts Clonidine Hcl (CLONIDINE HCL) 0.1 Mg Tablet, 0.1 MG PO BID for blood pressure control, #180 TAB 2 Refills Prov:BRADLEY SHARPE MD 06/17/18 Lisinopril (LISINOPRIL) 10 Mg Tablet, 10 MG PO DIRECTED, #270 TAB 3 Refills 2 in the morning and 1 in the evening Prov:BRADLEY SHARPE MD 06/17/18 Febuxostat (ULORIC) 40 Mg Tablet, 40 MG PO QDAY, #90 TAB 3 Refills Prov:BRADLEY SHARPE MD 06/17/18 Prednisone 10 Mg Tab (PREDNISONE 10 MG TAB) 10 Mg Tab.ds.pk, 10 MG PO DAILY, #40 TAB 4 tablets x 3 days 3 tablets x 3 days 2 tablets x 3 days 1 tablet x 3 days .5 tablets x 3 days than stop Prov:BRADLEY SHARPE MD 06/17/18 Diet: Regular Activity: As Tolerated Special Instructions: Follow up with primary care provider in 1-2 weeks. Copies to: BRADLEY SHARPE MD ; Venous Thromboembolism Antithrombotics Is Pt On Any Antithrombotics?: Yes Problem Qualifiers (1) CHF (congestive heart failure): Heart failure type: systolic YING GRIFFINP Jul 29, 2018 08:42
[2018-07-29 09:13] VITALS: BP 146/99
[2018-07-29] MEDS: cloNIDine HCL 0.1 MG TAB PO SCH (09:14)
[2018-07-29] MEDS: METOPROLOL SUCC XL 50 MG TABCR 50 MG TAB.ER.24H PO SCH (09:15)
[2018-07-29] MEDS ORDERED: WARFARIN SOD 4 MG TAB PO SCH (13:00)
== END 2018-07-29 10:07 | disposition home or self-care (01) | DRG 683 ==
LOC: ER 22:05 → MED 07-28 00:40
PROVIDERS: ADMIT Internal Medicine; ATTEND Internal Medicine
PROC: 5A09357 Assistance with Respiratory Ventilation, Less than 24 Consecutive Hours, Continuous Positive Airway Pressure (ICD-10-PCS; principal; 2018-07-28)
DX: N17.9 Acute kidney failure, unspecified (principal); E87.2 Acidosis; I50.22 Chronic systolic (congestive) heart failure; I13.0 Hypertensive heart and chronic kidney disease with heart failure and stage 1 through stage 4 chronic kidney disease, or unspecified chronic kidney disease; E11.22 Type 2 diabetes mellitus with diabetic chronic kidney disease; N18.9 Chronic kidney disease, unspecified; M10.9 Gout, unspecified; E86.0 Dehydration; R53.83 Other fatigue; I95.1 Orthostatic hypotension; G47.33 Obstructive sleep apnea (adult) (pediatric); R53.1 Weakness; R00.0 Tachycardia, unspecified; Z95.0 Presence of cardiac pacemaker; Z79.84 Long term (current) use of oral hypoglycemic drugs; Z79.01 Long term (current) use of anticoagulants; Z87.891 Personal history of nicotine dependence
CPT/HCPCS: 36415; 36416; 36600; 71045; 81001; 82040; 82140; 82247; 82310; 82374; 82435; 82550; 82565; 82803; 82947; 82948; 83605; 84075; 84132; 84155; 84295; 84443; 84450; 84460; 84484; 84520; 85025; 85610; 85730; 86140; 87040; 87502; 93005; 94640; 94660; 96361; 96372; 96374; 97161; 99285; J1885; J7030; J7512

== ENCOUNTER → 2018-11-25 | Outpatient (CLI) | payer MEDICARE ==
[~2018-11-25] MED LIST changes: +ARIP20TA11 PO; +DIPH0.5S2 IM; +Glucometer; +ISOS20TA64 PO; +ISOS30TA54 PO; +NIF10 PO; +NIFE-13 PO; +SERT-181 PO; +TEL40 PO; +TORS20TA30 PO; +[UNRECOGNIZED DRUG - OTHER]
[2018-11-25 10:01] LABS: PLATELET COUNT, AUTOMATED 156 K/uL (150-450)
== END ==
LOC: LAB 09:30
PROVIDERS: ATTEND Nurse Practitioner Family
DX: E11.9 Type 2 diabetes mellitus without complications (principal); E50.9 Vitamin A deficiency, unspecified; M10.9 Gout, unspecified; I10 Essential (primary) hypertension; N18.9 Chronic kidney disease, unspecified
CPT/HCPCS: 36415; 82040; 82247; 82310; 82374; 82435; 82465; 82565; 82947; 83036; 83718; 83880; 84075; 84132; 84155; 84295; 84443; 84450; 84460; 84478; 84520; 84550; 85025

== ENCOUNTER 2019-01-28 22:22 | Emergency (ER) | payer MEDICARE ==
--- NOTE | 2019-01-28 22:34 | ER Report ---
History and Physical Time Seen By MD: 22:29 Hx. of Stated Complaint: leg swelling for about 4 days, redness for about 3 days HPI/ROS CHIEF COMPLAINT: Leg swelling 4 days, redness HISTORY OF PRESENT ILLNESS: 43-year-old male with chronic lower extremity edema secondary to chronic heart failure. Patient notes his legs swelled up over the last 4 days. There's been some increased erythema on his lower extremities. Patient notes no fever, chills or body aches. Patient notes no chest pain or shortness of breath. Patient's concerned he may have a DVT. Patient denies salt excess. He denies missing his torsemide. REVIEW OF SYSTEMS: Respiratory: No cough, no dyspnea. Cardiovascular: No chest pain, no palpitations. Gastrointestinal: No vomiting, no abdominal pain. Musculoskeletal: As above Allergies: Coded Allergies: No Known Drug Allergies (Verified , 07/27/18) Home Meds Active Scripts Metolazone (METOLAZONE) 5 Mg Tablet, 5 MG PO DAILY PRN for increased leg swelling, #30 Prov:CARRIE GRIFFIN DO 01/28/19 Cephalexin 500 Mg Tab (KEFLEX 500 MG TAB) 500 Mg Tablet, 500 MG PO TID for infection, #28 TAB Prov:CARRIE GRIFFIN DO 01/28/19 Diph,Pertuss(Acell),Tet Vac/Pf (ADACEL SYRINGE) 0.5 Ml Disp.syrin, 0.5 ML IM ONCE, #1 SYR 0 Refills Prov:ARIS WILSON APRN-C 11/17/18 [Glucometer] No Conflict Check Prov:ARIS WILSON APRN-C 09/27/18 [CPAP w/ O2] No Conflict Check Prov:ARIS WILSON APRN-C 09/27/18 Ergocalciferol (Vitamin D2) (VITAMIN D2) 50,000 Unit Capsule, 57725 UNIT PO Q30D, #3 CAPSULE 3 Refills Prov:BRADLEY SHARPE MD 06/17/18 Atorvastatin Calcium (ATORVASTATIN CALCIUM) 20 Mg Tablet, 1 TAB PO QDAY, #90 TAB 3 Refills Prov:BRADLEY SHARPE MD 06/17/18 Warfarin Sodium (WARFARIN SODIUM) 2 Mg Tablet, 1-2 TAB PO DIRECTED, #180 TAB 3 Refills Take 3 tabs on Mon, Wed, Fri Take 1 tab on Tu, Th, Sat, and Sun Prov:BRADLEY SHARPE MD 06/17/18 Glipizide (GLIPIZIDE) 5 Mg Tablet, 1 TAB PO BID, #180 TAB 3 Refills Prov:BRADLEY SHARPE MD 06/17/18 Amlodipine Besylate (AMLODIPINE BESYLATE) 10 Mg Tablet, 1 TAB PO QDAY, #90 TAB 3 Refills Prov:BRADLEY SHARPE MD 06/17/18 Allopurinol (ZYLOPRIM) 300 Mg Tablet, 1 TAB PO BID, #180 TAB 3 Refills Prov:BRADLEY SHARPE MD 06/17/18 Metoprolol Succinate (TOPROL XL) 200 Mg Tab.er.24h, 1 TAB PO BID, #180 TAB 3 Refills Prov:BRADLEY SHARPE MD 06/17/18 Reported Medications Sertraline Hcl (SERTRALINE HCL) 100 Mg Tablet, 1 TAB PO QDAY, TAB 09/27/18 Aripiprazole (ABILIFY) 20 Mg Tablet, 20 MG PO QDAY, TAB 09/27/18 Torsemide (TORSEMIDE) 20 Mg Tablet, 20 MG PO QDAY 07/28/18 Telmisartan (MICARDIS) 40 Mg Tab, 40 MG PO QDAY, TAB 07/28/18 Lisinopril (LISINOPRIL) 10 Mg Tablet, 10 MG PO BID, TAB 07/28/18 Hydralazine Hcl (HYDRALAZINE HCL) 50 Mg Tablet, 50 MG PO TID, TAB 07/28/18 Nifedipine (NIFEDIPINE ER) 30 Mg Tablet.er, 30 MG PO QDAY 07/28/18 Isosorbide Mononitrate (ISOSORBIDE MONONITRATE ER) 30 Mg Tab.er.24h, 30 MG PO QDAY 07/28/18 Vitamin B Complex (B COMPLEX) 1 Each Tablet, 1 EACH PO QDAY 03/01/17 Folic Acid (FOLIC ACID) 0.4 Mg Tablet, 1 TAB PO DAILY 01/11/14 Past Medical/Surgical History Past Medical History Cardiovascular: Reports hx of: CHF hypertension Respiratory: Reports hx of: sleep apnea (Cpap) Musculoskeletal: Reports hx of: gout Endocrine: Reports hx of: diabetes type 2 Past Surgical History Gastrointestinal: Reports hx of: other GI surgery (Tumor removed from colon) Genitourinary: Reports hx of: other surgery (Testical Removed) Reviewed Nurses Notes: Yes Old Medical Records Reviewed: Yes Hx Smoking: Yes Smoking Status: Former Smoker Exposure to Second Hand Smoke?: No Hx Substance Use Disorder: No Hx Alcohol Use: No Constitutional Vital Sign - Last 24 Hours 01/28/19 01/28/19 22:28 23:30 Temp 98.4 Pulse 69 Resp 16 B/P (MAP) 156/101 144/90 (108) Pulse Ox 94 O2 Delivery Room Air Physical Exam General Appearance: The patient is alert, has no immediate need for airway protection and no current signs of toxicity. Vital signs stable, afebrile, pulse ox normal Eyes: Pupils equal and round no injection. Respiratory: Chest is non tender, lungs are clear to auscultation. Cardiac: regular rate and rhythm Gastrointestinal: Abdomen is soft and non tender, no masses, bowel sounds normal. Musculoskeletal: Neck: Neck is supple and non tender. Extremities have full range of motion and are non tender., 3+ edema bilaterally to the mid thigh region. There is circumferential erythema and petechiae in the lower tibia region. There is a trace of warmth. There is no tenderness. Both lower extremity is are neurovascularly intact. Skin: No rashes or lesions. DIFFERENTIAL DIAGNOSIS: After history and physical exam differential diagnosis was considered for edema, renal failure, congestive heart failure decompensation, excess salt intake, fluid overload, cellulitis, DVT Medical Decision Making EKG/Imaging Imaging Results: Ultrasound of the bilateral venograms of the lower extremities was obtained. The results of the study are Venous Doppler ultrasound of the bilateral lower extremity INDICATION: Bilateral leg swelling. COMPARISON: None Available FINDINGS: RIGHT: Common femoral greater saphenous junction: Negative. Common femoral vein: Negative. Femoral vein: Negative. Popliteal vein: Negative. Calf veins: Negative. Nonvascular findings: Benign-appearing inguinal lymph nodes. LEFT: Common femoral greater saphenous junction: Negative. Common femoral vein: Negative. Femoral vein: Negative. Popliteal vein: Negative. Calf veins: Negative. Nonvascular findings: Benign-appearing inguinal lymph nodes. IMPRESSION: Negative for deep vein thrombosis in the bilateral lower extremity. The study was read by the radiologist. I viewed the images myself on the PACS system. ED Course/Re-evaluation ED Course Patient was minute to an examination room. H&P was done. The differential diagnosis was considered. Patient with increasing bilateral edema for 3-4 days with erythema. He has no systemic symptoms of a fever. Patient denies alto excess. Bilateral lower externally. Ultrasounds were performed which were negative for evidence of DVT. There is some warmth to the palpation of the erythema. He could have low-grade cellulitis. He's placed on Keflex 500 mg 3 times a day. He is advised to increase his torsemide from 20 mg per day to 40 mg per day. He is also given a prescription for metolazone 5 mg to take daily as an adjunct to diuresis of the excess fluid. He's advised to follow-up with his primary care Dr Sharpe early next week for reevaluation. Decision to Disposition Date: Jan 28, 2019 Decision to Disposition Time: 23:29 Depart Departure Latest Vital Signs Vital Signs Date Time Temp Pulse Resp B/P (MAP) Pulse Ox O2 Delivery O2 Flow Rate FiO2 01/28/19 23:30 144/90 (108) 01/28/19 22:28 98.4 69 16 94 Room Air Impression: Primary Impression: Bilateral lower extremity edema Additional Impressions: Cellulitis Congestive heart failure Condition: Improved Disposition: HOME OR SELF-CARE Referrals: ARIS WILSON APRN BILL CHECKER-C (PCP) [place] Metolazone (METOLAZONE) 5 Mg Tablet 5 MG PO DAILY PRN for increased leg swelling, #30 Prov: CARRIE GRIFFIN DO 01/28/19 Cephalexin 500 Mg Tab (KEFLEX 500 MG TAB) 500 Mg Tablet 500 MG PO TID for infection, #28 TAB Prov: CARRIE GRIFFIN DO 01/28/19 Patient Instructions: Edema (ED), Heart Failure (ED) Additional Instructions: Double your Toresmide to 40 mg for 3 days Take metolazone 5 mg for 3 days Follow-up with your primary care doctor in 3-5 days if unimproved Problem Qualifiers Additional Impressions: Cellulitis Site of cellulitis: extremity Site of cellulitis of extremity: lower extremity Laterality: unspecified laterality Qualified Codes: L03.119 - C ellulitis of unspecified part of limb Congestive heart failure Heart failure type: unspecified Heart failure chronicity: chronic Qualified Codes: I50.9 - Heart failure, unspecified CARRIE GRIFFIN DO Jan 28, 2019 22:34
[2019-01-28 23:30] VITALS: BP 144/90
[2019-01-28] MEDS ORDERED: CEPH500T7 PO (23:34)
[2019-01-28] MEDS ORDERED: METO5TAB79 PO (23:34)
[2019-01-28] MEDS ORDERED: CEPHALEXIN MONO 500 MG CAP PO ONE (23:45)
--- NOTE | 2019-01-29 00:01 | RADIOLOGY IMAGING REPORT ---
FACILITY: [facility] PATIENT NAME: Roland Daugherty : 1975 MR: [id number] V: [id number] EXAM DATE: ORDERING PHYSICIAN: CARRIE GRIFFIN TECHNOLOGIST: Location: [facility] Patient: Roland Daugherty : 1975 Visit/Account:[id number] Date of Sevice: 01/28/2019 Venous Doppler ultrasound of the bilateral lower extremity INDICATION: Bilateral leg swelling. COMPARISON: None Available FINDINGS: RIGHT: Common femoral greater saphenous junction: Negative. Common femoral vein: Negative. Femoral vein: Negative. Popliteal vein: Negative. Calf veins: Negative. Nonvascular findings: Benign-appearing inguinal lymph nodes. LEFT: Common femoral greater saphenous junction: Negative. Common femoral vein: Negative. Femoral vein: Negative. Popliteal vein: Negative. Calf veins: Negative. Nonvascular findings: Benign-appearing inguinal lymph nodes. IMPRESSION: Negative for deep vein thrombosis in the bilateral lower extremity. Report Dictated By: Roberto Flowers MD at 01/28/2019 11:51 PM Report E-Signed By: Roberto Flowers MD at 01/28/2019 11:53 PM WSN:[id number]
== END 2019-01-28 23:54 | disposition home or self-care (01) ==
LOC: ER 22:50
DX: L03.119 Cellulitis of unspecified part of limb (principal); I50.9 Heart failure, unspecified
CPT/HCPCS: 93970; 99284; A9270